=== PATIENT | male | born 1965 | race African-American/Black ===

== ENCOUNTER 2022-05-26 11:43 | Emergency (ER) | payer MEDICAID, SELFPAY ==
--- NOTE | ~2022-05-26 | CT_ITS ---
EXAMINATION: CT HEAD WITHOUT CONTRAST CT CERVICAL SPINE WITHOUT CONTRAST CLINICAL INFORMATION: Seizure. Head strike. COMPARISON: CT head 03/22/2016. TECHNIQUE: Jr. Systems Administrator images were obtained. CT imaging of the head and cervical spine was performed without contrast. Data was reformatted into multiplanar images at the acquisition workstation. This CT examination was performed using dose optimization techniques as appropriate, including one or more of the following: Automated exposure control, iterative reconstruction, and adjustment of technique factors (mA and/or kVp) according to patient size (this includes techniques or standardized protocols for targeted exams where dose is matched to indication/reason for exam). Fleischner Society criteria for the followup of incidental pulmonary nodules was implemented if appropriate. DLP: 1087 mGy-cm. FINDINGS: There is a small chronic cortical infarct involving the left precentral gyrus. There are also a few small foci of chronic encephalomalacia involving the undersurface of the left frontal lobe and the right anterior temporal lobe. Scattered nonspecific foci of hypoattenuation are also visualized within the periventricular white matter. Grossly no evidence of acute territorial infarct. No acute hemorrhage or abnormal extra-axial collection. No intracranial mass effect or hydrocephalus. The calvarium and skull base are intact. Mastoid air cells and middle ear cavities are well aerated. There are chronic changes of an old healed nasal bone fracture and nasal septal fracture that are partially included within the [id number] of this examination. CT/CT head/brain wo IV con IMPRESSION: There is a small chronic cortical infarct within the left precentral gyrus and a few small foci of posttraumatic encephalomalacia involving the left inferior frontal lobe and the right anterior temporal lobe. Scattered chronic small vessel ischemic changes are also visualized within the periventricular white matter. No evidence of acute territorial infarct or hemorrhage.
--- NOTE | ~2022-05-26 | CT_ITS ---
EXAMINATION: CT HEAD WITHOUT CONTRAST CT CERVICAL SPINE WITHOUT CONTRAST CLINICAL INFORMATION: Seizure. Head strike. COMPARISON: CT head 03/22/2016. TECHNIQUE: Broommaker images were obtained. CT imaging of the head and cervical spine was performed without contrast. Data was reformatted into multiplanar images at the acquisition workstation. This CT examination was performed using dose optimization techniques as appropriate, including one or more of the following: Automated exposure control, iterative reconstruction, and adjustment of technique factors (mA and/or kVp) according to patient size (this includes techniques or standardized protocols for targeted exams where dose is matched to indication/reason for exam). Fleischner Society criteria for the followup of incidental pulmonary nodules was implemented if appropriate. DLP: 1087 mGy-cm. FINDINGS: There is a small chronic cortical infarct involving the left precentral gyrus. There are also a few small foci of chronic encephalomalacia involving the undersurface of the left frontal lobe and the right anterior temporal lobe. Scattered nonspecific foci of hypoattenuation are also visualized within the periventricular white matter. Grossly no evidence of acute territorial infarct. No acute hemorrhage or abnormal extra-axial collection. No intracranial mass effect or hydrocephalus. The calvarium and skull base are intact. Mastoid air cells and middle ear cavities are well aerated. There are chronic changes of an old healed nasal bone fracture and nasal septal fracture that are partially included within the [id number] of this examination. CT/CT cervical spine wo IV con IMPRESSION: There is a small chronic cortical infarct within the left precentral gyrus and a few small foci of posttraumatic encephalomalacia involving the left inferior frontal lobe and the right anterior temporal lobe. Scattered chronic small vessel ischemic changes are also visualized within the periventricular white matter. No evidence of acute territorial infarct or hemorrhage.
[2022-05-26 11:56] VITALS: BP 100/65; BP 110/72; PULSE 77; PULSE 80; RESP 20; TEMP 36.6; O2SAT 98; BMI 27.3
[2022-05-26 12:37] VITALS: BP 95/65; PULSE 70; RESP 18; TEMP 36.6; O2SAT 98
--- NOTE | 2022-05-26 13:09 | ED.FALL ---
HPI - Fall General Chief Complaint: Fall Stated Complaint: SEIZURE AND FALL T-1 Time Seen by Provider: 05/26/22 13:03 Source: patient and EMS Mode of arrival: EMS Limitations: altered mental status History of Present Illness HPI Narrative: 56-year-old male with history of seizure disorder, wheelchair bound, alcohol-induced dementia, hypothyroidism, hyperlipidemia, allergic rhinitis, Kaminski who presents to the ER Via EMS from [facility] for evaluation of a frontal headache, nausea and left-sided weakness that was noted today. Patient reportedly fell out of his wheelchair yesterday and had a seizure. He hit his head and sustained a minor laceration that was closed with Steri-Strips yesterday at [facility]. on nursing assessment today patient was found to have some left-sided weakness and he was complaining of a 4/10 frontal headache as well as nausea. Patient is a poor historian. MD complaint: fall Onset (ago): day(s) (1) Fall from: wheelchair Fall witnessed: yes, by living facility staff Place fall occurred: shelter/SNF Prolonged down time: no Symptoms prior to fall: none Location of injury: head Associated symptoms (after fall): headache Related Data Previous Rx's Medication Instructions Recorded cefuroxime axetil 250 mg tablet 250 mg PO BID 7 days #14 tabs 05/26/22 Allergies Allergy/AdvReac Type Severity Reaction Status Date / Time No Known Allergies Allergy Unverified 02/26/20 18:55 [No Known Allergies*] Review of Systems Review of Systems: Constitutional: No Fever, No Chills ENT/Mouth: No sore throat, No Rhinorrhea, No Swallowing Difficulty, +sinus pressure Eyes: No Eye Pain, No Swelling, No Redness Cardiovascular: No Chest Pain, No SOB Respiratory: No Cough, No Sputum, No Wheezing, No dyspnea Gastrointestinal: + Nausea, No Vomiting, No Diarrhea, No abdominal Pain Genitourinary: No Dysuria, No Urinary Frequency, No Hematuria Musculoskeletal: No joint pain, No Myalgias Skin: No Skin Lesions, No rash Neuro: + Weakness, No Numbness, No Dizziness, + Headache Psych: No Anxiety/Panic, No Depression Heme/Lymph: No Bruising, No Lymphadenopathy PMFSH Social History Social History Alcohol intake: former Advance Directives: Yes Advance Directives on File: Yes Advance Directives Date on File: 05/26/22 Physical Exam Vital Signs: Vital Signs: Last Vital Signs Temp 97.7 F 05/26/22 15:16 Pulse 80 05/26/22 15:16 Resp 14 05/26/22 15:16 BP 101/61 05/26/22 15:16 Pulse Ox 98 05/26/22 15:16 O2 Del Method 05/26/22 15:16 BMI result Body Mass Index 27.3 Appearance: Alert. Oriented X2. No acute distress. Head: 2cm linear vertical laceration in the middle of the forehead closed with 2 steri-strips. mild surrounding swelling Eyes: Pupils equal, round and reactive to light. ENT: Pharynx normal. poor dentition Neck: Normal inspection. Neck supple. CVS: Normal heart rate and rhythm. Pulses normal. Respiratory: No respiratory distress. Breath sounds normal. Abdomen: Soft and nontender. +BS x4 Skin: Skin warm and dry. Normal skin color. Normal skin turgor. No rashes. Extremities: No lower extremity edema. Neuro: Oriented X 2, disoriented to time. No motor deficit. No sensory deficit. strength is equal and symmetrical throughout. Course Course Course Narrative: 56 yo male with history of alcohol induced dementia, seizure disorder, wheelchair bound who presents to the ER for evaluation of dizziness, left-sided weakness and nausea along with headache after a fall at his via trach yesterday. Laceration is well approximated with Steri-Strips. On examination he has equal and symmetrical strength throughout. He did require some prompting to perform strength assessment but it is equal and symmetrical. Will get CT scan of his head and neck given head trauma. Will check basic lab your workup and urinalysis. Reevaluation(s) Reevaluation #1: Lab workup unremarkable. CT head with chronic findings, no acute traumatic injury. Urinalysis consistent with infection, start on p.o. antibiotics. He is not septic. Comfortable discharge back to [facility]. Medications Administered Discontinued Medications Generic Name Dose Route Start Last Admin Trade Name Freq PRN Reason Stop Dose Admin Nicotine 14 mg 05/26/22 15:34 05/26/22 15:37 Nicotine 14 Mg Patch.Td24 TRANSDERMA 05/26/22 15:35 14 mg ONCE ONE Administration Medical Decision Making Lab Data Result Diagrams: 05/26/22 13:45 05/26/22 13:45 Labs: Lab Results 1205/26/22 05/26/22 Range/Units 13:45 13:45 13:45 WBC 9.2 (4.8-10.8) X10*3/uL RBC 4.44 L (4.60-5.80) X10*6/uL Hgb 13.8 L (14.0-18.0) g/dl Hct 39.8 L (42.0-52.0) % MCV 89.6 (80.0-98.0) fL MCH 31.1 (27.0-33.0) pg MCHC 34.7 (31.0-36.0) g/dl RDW 13.1 (11.0-16.0) % Plt Count 174 (160-400) X10*3/uL MPV 8.5 L (9.4-12.4) fL Immature Gran % (Auto) 0.1 (0.0-0.4) % Neut % (Auto) 48.8 (45-73) % Lymph % (Auto) 37.5 (20-40) % [place] % (Auto) 9.6 (2-11) % Eos % (Auto) 3.5 (0-4) % Baso % (Auto) 0.5 (0-2) % Lymph # (Auto) 3.5 (1.2-4.9) X10*3/uL [place] # (Auto) 0.9 (0.1-1.2) X10*3/uL Eos # (Auto) 0.3 (0.0-0.4) X10*3/uL Baso # (Auto) 0.1 (0.0-0.2) X10*3/uL Abs Immat Gran (auto) 0.01 (0.00-0.03) X10*3/uL Absolute Neuts (auto) 4.5 (2.0-8.3) x10*3/uL Absolute Nucleated RBC 0.000 (0.0-0.012) X10*3/uL Nucleated RBC % (auto) 0.0 (0.0-0.2) /100WBC Sodium 141 (135-145) mmol/L Potassium 4.1 (3.3-5.1) mmol/L Chloride 107 (96-108) mmol/L Carbon Dioxide 26 (22-29) mmol/L Anion Gap 12 (12-20) BUN 6 L (9-16) mg/dL Creatinine 0.87 (0.5-1.4) mg/dL Estim Creat Clear Calc 95.9 Estimated GFR > 60 Random Glucose 83 (60-115) mg/dL Calcium 9.5 (8.4-10.2) mg/dL Total Bilirubin 0.3 (0.0-1.0) mg/dL AST 17 (5-37) U/L ALT 15 (0-40) U/L Alkaline Phosphatase 80 (39-117) U/L Total Protein 6.6 (6.5-8.0) g/dL Albumin 3.8 (3.5-5.0) g/dL Urine Color Urine Appearance Urine pH (5.0-9.0) Ur Specific [place] (1.005-1.025) Urine Protein (Neg-Trace) mg/dL Urine Glucose (UA) (Negative) mg/dL Urine Ketones (Negative) mg/dL Urine Blood (Negative) Urine Nitrite (Negative) Ur Leukocyte Esterase (Negative) Urine RBC (0-2) /HPF Urine WBC (0-5) /HPF Ur Squamous Epith Cells (0-2) /HPF Urine Bacteria (None Seen) Hyaline Casts (0-2) /LPF COVID-19 (EAMON) (Negative) COVID-19 Clin Com Influenza Type A (CHRISTINA) Negative (Negative) Influenza Type B (CHRISTINA) Negative (Negative) Influenza A & B Note See Note 05/26/22 05/26/22 Range/Units 13:45 15:15 WBC (4.8-10.8) X10*3/uL RBC (4.60-5.80) X10*6/uL Hgb (14.0-18.0) g/dl Hct (42.0-52.0) % MCV (80.0-98.0) fL MCH (27.0-33.0) pg MCHC (31.0-36.0) g/dl RDW (11.0-16.0) % Plt Count (160-400) X10*3/uL MPV (9.4-12.4) fL Immature Gran % (Auto) (0.0-0.4) % Neut % (Auto) (45-73) % Lymph % (Auto) (20-40) % [place] % (Auto) (2-11) % Eos % (Auto) (0-4) % Baso % (Auto) (0-2) % Lymph # (Auto) (1.2-4.9) X10*3/uL [place] # (Auto) (0.1-1.2) X10*3/uL Eos # (Auto) (0.0-0.4) X10*3/uL Baso # (Auto) (0.0-0.2) X10*3/uL Abs Immat Gran (auto) (0.00-0.03) X10*3/uL Absolute Neuts (auto) (2.0-8.3) x10*3/uL Absolute Nucleated RBC (0.0-0.012) X10*3/uL Nucleated RBC % (auto) (0.0-0.2) /100WBC Sodium (135-145) mmol/L Potassium (3.3-5.1) mmol/L Chloride (96-108) mmol/L Carbon Dioxide (22-29) mmol/L Anion Gap (12-20) BUN (9-16) mg/dL Creatinine (0.5-1.4) mg/dL Estim Creat Clear Calc Estimated GFR Random Glucose (60-115) mg/dL Calcium (8.4-10.2) mg/dL Total Bilirubin (0.0-1.0) mg/dL AST (5-37) U/L ALT (0-40) U/L Alkaline Phosphatase (39-117) U/L Total Protein (6.5-8.0) g/dL Albumin (3.5-5.0) g/dL Urine Color Yellow Urine Appearance Clear Urine pH 5.0 (5.0-9.0) Ur Specific [place] 1.025 (1.005-1.025) Urine Protein Negative (Neg-Trace) mg/dL Urine Glucose (UA) Negative (Negative) mg/dL Urine Ketones Trace (Negative) mg/dL Urine Blood Negative (Negative) Urine Nitrite Negative (Negative) Ur Leukocyte Esterase Moderate (2+) H (Negative) Urine RBC 0-2 (0-2) /HPF Urine WBC 21-50 H (0-5) /HPF Ur Squamous Epith Cells 0-2 (0-2) /HPF Urine Bacteria None Seen (None Seen) Hyaline Casts 0-2 (0-2) /LPF COVID-19 (EAMON) Negative (Negative) COVID-19 Clin Com See Note Influenza Type A (CHRISTINA) (Negative) Influenza Type B (CHRISTINA) (Negative) Influenza A & B Note Critical Care Time Critical Care Time Critical Care Time: No Discharge Plan Discharge Clinical Impression: Acute UTI, Laceration of head Patient Disposition: Xfer [facility] Transfer Details: [facility] Instructions: Urinary Tract Infection in Men (ED) Additional Instructions: Your CT scan today did not show any new or acute abnormalities. Your lab work was unremarkable. Your urine test showed evidence of infection. Take the prescribed antibiotic as directed for 1 week. Complete the entire course and do not miss any doses. Prescriptions: New cefuroxime axetil 250 mg tablet 250 mg PO BID 7 Days Qty: 14 0RF
--- NOTE | 2022-05-26 13:24 | PC.NURSE ---
Pt alert to person and place, hx dementia. Coming from [facility] for seizure/fall from wheel chair yesterday afternoon. CT taken
[2022-05-26 13:51] LABS: MANUAL DIFF FLAG NO
[2022-05-26 13:56] LABS: Basophils Absolute Auto 0.1 X10*3/uL (0.0-0.2); Basophils Percent Auto 0.5 % (0-2); Eosinophils Absolute Auto 0.3 X10*3/uL (0.0-0.4); Eosinophils Percent Auto 3.5 % (0-4); Hematocrit 39.8 % (42.0-52.0); Hemoglobin 13.8 g/dl (14.0-18.0); Imm Gran Abs Auto 0.01 X10*3/uL (0.00-0.03); Imm Gran Pct Auto 0.1 % (0.0-0.4); Lymphocytes Absolute Auto 3.5 X10*3/uL (1.2-4.9); Lymphocytes Percent Auto 37.5 % (20-40); Mean Corpuscular HGB Conc 34.7 g/dl (31.0-36.0); Mean Corpuscular Hemoglobin 31.1 pg (27.0-33.0); Mean Corpuscular Volume 89.6 fL (80.0-98.0); Mean Platelet Volume 8.5 fL (9.4-12.4); Monocytes Absolute Auto 0.9 X10*3/uL (0.1-1.2); Monocytes Percent Auto 9.6 % (2-11); Neutrophils Absolute Auto 4.5 x10*3/uL (2.0-8.3); Neutrophils Percent Auto 48.8 % (45-73); Platelet Count 174 X10*3/uL (160-400); Red Blood Count 4.44 X10*6/uL (4.60-5.80); Red Cell Distribution Width 13.1 % (11.0-16.0); White Blood Count 9.2 X10*3/uL (4.8-10.8)
[2022-05-26 14:09] LABS: COVID-19 Test Negative (Negative); IDNOW Serial# 16C4AD1C
[2022-05-26 14:24] LABS: IDNOW Serial# 9DB6401D; Influenza A Negative (Negative); Influenza B2 Negative (Negative)
[2022-05-26 14:36] LABS: Alanine Aminotransferase 15 U/L (0-40); Albumin Level 3.8 g/dL (3.5-5.0); Alkaline Phosphatase 80 U/L (39-117); Anion Gap 12 (12-20); Aspartate Amino Transferase 17 U/L (5-37); Bilirubin Total 0.3 mg/dL (0.0-1.0); Blood Urea Nitrogen 6 mg/dL (9-16); Calcium 9.5 mg/dL (8.4-10.2); Carbon Dioxide 26 mmol/L (22-29); Chloride 107 mmol/L (96-108); Creatinine Clr Calc Pharmacy 95.9; Estimated Glomerular Filt Rate > 60; Glucose Random 83 mg/dL (60-115); Potassium 4.1 mmol/L (3.3-5.1); Sodium 141 mmol/L (135-145); Total Protein 6.6 g/dL (6.5-8.0)
[2022-05-26 15:16] VITALS: BP 101/61; PULSE 80; RESP 14; TEMP 36.5; O2SAT 98
[2022-05-26 15:32] LABS: Appearance Urine Clear; Color Urine Yellow; Glucose Urine UA Negative (Negative); Leukocyte Esterase Urine Moderate (2+) (Negative); Nitrite Urine Negative (Negative); Specific Gravity - Urine 1.025 (1.005-1.025); UMIC TRIGGER UACC YES; Urine Blood Negative (Negative); Urine Ketones Trace mg/dL (Negative); Urine Protein Negative (Neg-Trace)
[2022-05-26 15:35] LABS: Bacteria Urine None Seen (None Seen); Hyaline Casts Urine 0-2 /LPF (0-2); RBC Urine 0-2 /HPF (0-2); Squamous Epithelial Cell Urine 0-2 /HPF (0-2); UACC Culture Trigger YES; WBC Urine 21-50 /HPF (0-5)
[2022-05-26] MEDS: Nicotine 14 MG PATCH.TD24 TRANSDERMA (15:37)
--- NOTE | 2022-05-26 15:59 | MHC.EDTECH ---
pt going home with [facility] today at 6pm Jaclyn navarro booked the ride home
--- NOTE | 2022-05-26 17:38 | PC.NURSE ---
Pt sitting in chair, drink and food provided. Awaiting EMS transport back to [facility]
== END 2022-05-26 18:14 | disposition skilled nursing facility (03) ==
PROVIDERS: Physician Assistant; Emergency Provider Student in an Organized Health Care Education/Training Program; PCP Hospitalist
DX: N39.0 Urinary tract infection, site not specified (principal); Z20.822 Contact with and (suspected) exposure to COVID-19; S01.81XA Laceration without foreign body of other part of head, initial encounter; W05.0XXA Fall from non-moving wheelchair, initial encounter; Y93.9 Activity, unspecified; Y92.129 Unspecified place in nursing home as the place of occurrence of the external cause; Y99.9 Unspecified external cause status
CPT/HCPCS: 36415; 70450; 72125; 80053; 81001; 85025; 87086; 87088; 87186; 87502; 87635; 99284

== ENCOUNTER 2023-02-24 21:04 | Emergency (ER) | payer MEDICAID, SELFPAY ==
--- NOTE | 2023-02-24 | ECG_ITS ---
Test Reason : SEIZURE Blood Pressure : / mmHG Vent. Rate : 072 BPM Atrial Rate : 072 BPM P-R Int : 136 ms QRS Dur : 086 ms QT Int : 408 ms P-R-T Axes : 032 061 071 degrees QTc Int : 446 ms Normal sinus rhythm Normal ECG When compared with ECG of 06-JUN-2019 19:48, No significant change was found Referred By: Generic ED Physician Electronically Signed By:KAREEM AGUILAR
--- NOTE | ~2023-02-24 | CT_ITS ---
EXAMINATION: CT HEAD WITHOUT CONTRAST CT CERVICAL SPINE WITHOUT CONTRAST CLINICAL INFORMATION: Injury. Pain. COMPARISON: 05/26/2022 TECHNIQUE: Contiguous axial imaging was performed from the skull base to vertex without intravenous administration of contrast. This CT examination was performed using dose optimization techniques as appropriate, variously including the following: *Automated exposure control *Adjustment of mA and/or kV according to patient size (this includes techniques or standardized protocols for targeted exams where dose is matched to indication/reason for exam; i.e. extremities or head) *Use of iterative reconstruction technique DLP: 1473 mGy-cm FINDINGS: Motion slightly limits evaluation. There is again seen cerebral volume loss with prominence of the lateral and the third ventricles. The cortical sulci are widened appropriately. The fourth ventricle and basal cisterns are normally outlined. Left frontal encephalomalacia is again seen. There is also mild bilateral periventricular and central white matter diminished attenuation. There is no acute territorial the head, hemorrhage or midline shift. Calvarium: Intact. There appears to be right frontotemporal soft tissue swelling. Maxillofacial sinuses and mastoids: Clear as visualized. Cervical spine: There is straightening of the expected cervical spine curvature. There is mild diffuse cervical disc degenerative change with loss of disc space, endplate change and minimal posterior osteophytes associated with mild diffuse facet osteoarthritic hypertrophic change with mild lateral multilevel spinal canal narrowing, mild to moderate bilateral C5-C6 neuroforaminal narrowing and mild neuroforaminal narrowing at the remaining levels. There is no fracture. Soft tissues are unremarkable. The upper lung bower are clear. CT/CT cervical spine wo IV con IMPRESSION: Motion degraded images slightly limits evaluation. Cerebral volume loss and mild bilateral periventricular and central white matter diminished attenuation which is nonspecific but likely to represent microvascular disease. No acute intracranial abnormality. Straightening of the cervical spine curvature with mild diffuse cervical disc degenerative change. No fracture identified.
[2023-02-24 21:07] VITALS: BP 92/62; PULSE 70; O2SAT 100
[2023-02-24 21:14] VITALS: BP 92/62; PULSE 70; O2SAT 100
[2023-02-24 21:16] VITALS: BP 110/64; PULSE 68; RESP 16; TEMP 36.6; O2SAT 100; BMI 19.6
[2023-02-24 23:13] VITALS: BP 116/79; PULSE 80; RESP 16; TEMP 37; O2SAT 97
--- NOTE | 2023-02-24 23:53 | ED_ITS ---
HPI - Fall General Chief Complaint: Fall Stated Complaint: fall Time Seen by Provider: 02/24/23 22:49 History of Present Illness HPI Narrative: patient is a 57-year-old male with a history of alcohol related dementia history of seizure has a history of being on Dilantin presented today with possibly having a seizure then fell and hitting his head patient unable to provide detailed history was noted by the skilled nursing staff have a large hematoma to the forehead. Patient unable to give details secondary to alcohol induced dementia. Related Data Previous Rx's Medication Instructions Recorded cefuroxime axetil 250 mg tablet 250 mg PO BID 7 days #14 tabs 05/26/22 Allergies Allergy/AdvReac Type Severity Reaction Status Date / Time No Known Allergies Allergy Unverified 02/26/20 18:55 [No Known Allergies*] Review of Systems Review of Systems: Patient uncooperative in answering review of system [facility] Past Medical History Attestation statement: The following information was validated with the patient. Social History Social History Alcohol intake: former Smoked in Last 30 Days: No Use of substances other than those prescribed or required for medical reasons: No Advance Directives: No Advance Directives Information Provided: No Advance Directives Date on File: 05/26/22 Physical Exam Vital Signs: Vital Signs: Last Vital Signs Temp 98.6 F 02/24/23 23:13 Pulse 84 02/25/23 01:06 Resp 16 02/25/23 01:06 BP 116/79 02/24/23 23:13 Pulse Ox 95 02/25/23 01:06 O2 Del Method Room Air 02/25/23 01:06 BMI result Body Mass Index 19.6 Appearance: Alert.No acute distress. Large hematoma to the forehead Eyes: Pupils equal, round and reactive to light. ENT: Pharynx normal. Neck: Normal inspection. Neck supple. No lymph nodes noted. No crepitus CVS: Normal heart rate and rhythm. Pulses normal. Normal S1 and S2 Respiratory: No respiratory distress. Breath sounds normal. No Wheezing. No rales Abdomen: Soft and nontender. No rigidity. No distention. good BS x4 Skin: Skin warm and dry. Normal skin color. Normal skin turgor. Extremities: No lower extremity edema. Neurovascular intact to all extremities. No Lacerations. No Rash Neuro: No motor deficit. No sensory deficit. Moving all extermities. Medications Administered Discontinued Medications Generic Name Dose Route Start Last Admin Trade Name Devon PRN Reason Stop Dose Admin Diphenhydramine HCl 25 mg 02/25/23 00:00 02/25/23 00:52 Diphenhydramine Hcl 50 Mg/Ml Vial IM 02/25/23 00:01 Not Given ONCE ONE Haloperidol Lactate 5 mg 02/24/23 23:58 02/25/23 00:07 Haloperidol Lactate 5 Mg/Ml Vial IM 02/24/23 23:59 5 mg ONCE ONE Administration Lorazepam 2 mg 02/24/23 23:58 02/25/23 00:06 Lorazepam 2 Mg/Ml Vial IM 02/24/23 23:59 2 mg ONCE ONE Administration Ziprasidone 10 mg 02/25/23 00:51 02/25/23 01:00 Ziprasidone Mesylate 20 Mg Vial IM 02/25/23 00:52 10 mg ONCE ONE Administration Medical Decision Making Medical Decision Making [facility] Narrative: patient has positive history of seizure currently in a skilled nursing. History of dementia secondary to ETOH use in the past. Extremely agitated requiring additional medication as we were not able to verbally deescalate the situation. Initially patient received 5 a Haldol 2 Ativan to no avail patient is still agitated swinging at nursing staff. Additional Geodon was given. Currently more sedated awaiting CT scan of the head C-spine. Labs are pending. Differential Diagnosis Differential Diagnoses: The differential diagnosis associated with the presentation includes Seizure, head injury, C-spine injury, electrolyte disturbance Discharge Plan Discharge Clinical Impression: Head injury Patient Disposition: Still a Patient Prescriptions: No Action cefuroxime axetil 250 mg tablet 250 mg PO BID 7 Days Qty: 14 0RF
[2023-02-25] VITALS (10 sets, daily range): BP systolic 95–140; BP diastolic 66–90; PULSE 74–89; RESP 16; TEMP 37; O2SAT 95–99
[2023-02-25] MEDS: LORazepam 2 MG/ML VIAL IM (00:06)
[2023-02-25] MEDS: Haloperidol Lactate 5 MG/ML VIAL IM (00:07)
--- NOTE | 2023-02-25 00:09 | PC.NURSE ---
Pt verbally agressive with docketing specialist, refusing scan, MD at the bedside, pt given IM Haldol and Ativan per MAR, security present at the bedside for assistance medicating, plan to draw labs and scan pt once he is calm.
[2023-02-25] MEDS: Ziprasidone Mesylate 20 MG VIAL 10 MG IM (01:00)
--- NOTE | 2023-02-25 01:04 | PC.NURSE ---
pt continually verbally agressive with staff, attempting to get out of bed, at the bedside, pt medicated with IM Fredrickdon per AUG, plan to wait 20min and then reassess if pt is ready for labs and CT scan
[2023-02-25 02:29] LABS: MANUAL DIFF FLAG NO
[2023-02-25 02:30] LABS: Basophils Absolute Auto 0.1 X10*3/uL (0.0-0.2); Basophils Percent Auto 0.9 % (0-2); Eosinophils Absolute Auto 0.8 X10*3/uL (0.0-0.4); Eosinophils Percent Auto 8.1 % (0-4); Hematocrit 41.6 % (42.0-52.0); Hemoglobin 14.9 g/dl (14.0-18.0); Imm Gran Abs Auto 0.02 X10*3/uL (0.00-0.03); Imm Gran Pct Auto 0.2 % (0.0-0.4); Lymphocytes Absolute Auto 3.2 X10*3/uL (1.2-4.9); Lymphocytes Percent Auto 33.9 % (20-40); Mean Corpuscular HGB Conc 35.8 g/dl (31.0-36.0); Mean Corpuscular Hemoglobin 30.7 pg (27.0-33.0); Mean Corpuscular Volume 85.8 fL (80.0-98.0); Mean Platelet Volume 8.2 fL (9.4-12.4); Monocytes Absolute Auto 0.8 X10*3/uL (0.1-1.2); Monocytes Percent Auto 8.6 % (2-11); Neutrophils Absolute Auto 4.5 x10*3/uL (2.0-8.3); Neutrophils Percent Auto 48.3 % (45-73); Platelet Count 171 X10*3/uL (160-400); Red Blood Count 4.85 X10*6/uL (4.60-5.80); Red Cell Distribution Width 12.6 % (11.0-16.0); White Blood Count 9.4 X10*3/uL (4.8-10.8)
[2023-02-25 02:43] LABS: Ethanol < 10 mg/dL
[2023-02-25 02:44] LABS: Anion Gap 12 (12-20); Blood Urea Nitrogen 7 mg/dL (9-16); Calcium 9.4 mg/dL (8.4-10.2); Carbon Dioxide 22 mmol/L (22-29); Chloride 110 mmol/L (96-108); Creatinine Clr Calc Pharmacy 90.4; Estimated Glomerular Filt Rate > 60; Glucose Random 93 mg/dL (60-115); Potassium 3.9 mmol/L (3.3-5.1); Sodium 140 mmol/L (135-145)
[2023-02-25 02:55] LABS: Phenytoin Dilantin 51.9 ug/mL (10.0-20.0)
--- NOTE | 2023-02-25 03:19 | PC.NURSE ---
pt sleeping, tolerated CT scan and blood work, pending results, VSS
--- NOTE | 2023-02-25 06:38 | MHC.EDTECH ---
call out to melanie to book transport at 0638 for pt back to SNF, estimated eta given was 0754
== END 2023-02-25 07:26 ==
PROVIDERS: Emergency Medicine Emergency Medical Services; Emergency Provider Emergency Medicine Emergency Medical Services; PCP Hospitalist
DX: S09.90XA Unspecified injury of head, initial encounter (principal); W19.XXXA Unspecified fall, initial encounter; Y93.9 Activity, unspecified; Y92.9 Unspecified place or not applicable; Y99.9 Unspecified external cause status; F03.90 Unspecified dementia, unspecified severity, without behavioral disturbance, psychotic disturbance, mood disturbance, and anxiety; M54.2 Cervicalgia; R51.9 Headache, unspecified
CPT/HCPCS: 36415; 70450; 72125; 80048; 80185; 80307; 85025; 93005; 96372; 99284; 99285; J2060; J3486

== ENCOUNTER 2023-09-19 10:08 | Inpatient (IN) | payer MEDICAID, SELFPAY ==
[2023-09-19] VITALS (8 sets, daily range): BP systolic 94–123; BP diastolic 60–76; PULSE 64–74; RESP 14–18; TEMP 36.1–36.9; O2SAT 97–99; BMI 21.3
--- NOTE | ~2023-09-19 | US_ITS ---
EXAMINATION: NONINVASIVE ASSESSMENT OF THE ARTERIES OF THE LEFT LOWER EXTREMITY Jan Mcgee MD CLINICAL INFORMATION: Gangrenous second toe TECHNIQUE: Left lower extremity duplex ultrasound was performed with velocity measurements and waveform analysis in the common femoral arteries, profunda femoris arteries, proximal mid and distal superficial femoral arteries, popliteal arteries and tibial vessels. This study was performed only at rest. COMPARISON: None FINDINGS: Velocities in cm/sec and phasicity as well as the presence of plaque are reported below. LEFT LEG: Mild plaque is seen. Triphasic flow is present in the common femoral artery and profunda femoris artery with biphasic flow noted in the proximal SFA and mid SFA with triphasic flow are again noted in the SFA and popliteal artery. Monophasic flow is present in the posterior tibial and peroneal arteries. Common Femoral: 110 Profunda Femoris: 77 Proximal SFA: 76 Mid SFA: 32 Distal SFA: 68 Popliteal: 48 Posterior tibial artery: 36 Peroneal: 10 US/US arterial duplex LE LT IMPRESSION: There is evidence of mild proximal and mid SFA disease with marked disease with monophasic flow in the tibial runoff vessels.
--- NOTE | ~2023-09-19 | XR_ITS ---
EXAMINATION: XR CHEST XR LEFT FOOT CLINICAL INFORMATION: Shortness of breath and congestion. Left second toe pain. COMPARISON: 03/22/2016 TECHNIQUE: AP and lateral views of the chest were obtained. AP, lateral and oblique views of the left foot were obtained. FINDINGS: Chest: The lungs are well expanded. No focal consolidation. No pleural effusion. Cardiac silhouette is unchanged. Left foot: The bones are osteopenic. Diffuse interphalangeal joint space narrowing. Mild joint space narrowing of the first MTP joint. There is osteolysis involving the distal tuft of the second digit distal phalanx. There is a smooth erosion of the distal aspect of the second digit middle phalanx. Small plantar calcaneal spur. XR/XR chest 2V IMPRESSION: Osteolysis involving the distal tuft of the second digit distal phalanx. Smooth erosion of the distal aspect of the second digit middle phalanx. Osteomyelitis cannot be excluded. No acute cardiopulmonary process.
--- NOTE | ~2023-09-19 | XR_ITS ---
EXAMINATION: XR CHEST XR LEFT FOOT CLINICAL INFORMATION: Shortness of breath and congestion. Left second toe pain. COMPARISON: 03/22/2016 TECHNIQUE: AP and lateral views of the chest were obtained. AP, lateral and oblique views of the left foot were obtained. FINDINGS: Chest: The lungs are well expanded. No focal consolidation. No pleural effusion. Cardiac silhouette is unchanged. Left foot: The bones are osteopenic. Diffuse interphalangeal joint space narrowing. Mild joint space narrowing of the first MTP joint. There is osteolysis involving the distal tuft of the second digit distal phalanx. There is a smooth erosion of the distal aspect of the second digit middle phalanx. Small plantar calcaneal spur. XR/XR foot LT min 3V IMPRESSION: Osteolysis involving the distal tuft of the second digit distal phalanx. Smooth erosion of the distal aspect of the second digit middle phalanx. Osteomyelitis cannot be excluded. No acute cardiopulmonary process.
--- NOTE | 2023-09-19 10:35 | ED.GENADULT ---
HPI - General Adult General Chief complaint: Extremity Injury, Lower Stated complaint: L TOE PAIN/DISCOLORED FROM SNF PER EMS Time Seen by Provider: 09/19/23 10:35 Source: patient and RN notes reviewed Mode of arrival: ambulatory Limitations: no limitations History of Present Illness HPI narrative: This is a 58-year-old male, with a hx of history of seizure disorder, alcohol-induced dementia, hypothyroidism, hyperlipidemia, allergic rhinitis, Kam[place] who presents to the ER via EMS from [facility], who presents with concerns for necrotic 2nd toe. He is unable to provide detailed history secondary to dementia. It is unclear how long this has been like this, he states that he does have pain in this toe. He also has concerns for abdominal discomfort. He is alert and oriented to self only. MD complaint: Second toe necrosis Onset (ago): unknown Related Data Home Medications ?Medication ?Instructions ?Recorded ?Confirmed acetaminophen 325 mg tablet 650 mg PO Q4H PRN Mild Pain (Scale 09/19/23 09/19/23 Score 1-4) aluminum-mag hydroxide-simethicone 30 ml PO QID PRN STOMACH DISCOMFORT 09/19/23 09/19/23 200 mg-200 mg-20 mg/5 mL oral susp aspirin 81 mg tablet,delayed 81 mg PO DAILY 09/19/23 09/19/23 release benzocaine 10 % mucosal gel 1 appl mucous membrane QID PRN 09/19/23 09/19/23 DENTAL PAIN dextran 70-hypromellose eye drops 2 drp ophthalmic (eye) Q6H PRN Dry 09/19/23 09/19/23 in a dropperette (Artificial Tears Eye(S) (PF) drops in a dropperette) diazepam 2 mg tablet 1 mg PO BID 09/19/23 09/19/23 docusate sodium 100 mg capsule 100 mg PO DAILY 09/19/23 09/19/23 (Colace) fluticasone propionate 50 1 spray intranasal BID 09/19/23 09/19/23 mcg/actuation nasal spray,suspension gabapentin 600 mg tablet 600 mg PO TID 09/19/23 09/19/23 haloperidol 2 mg tablet 4 mg PO BID 09/19/23 09/19/23 haloperidol 5 mg tablet 5 mg PO BID 09/19/23 09/19/23 ibuprofen 600 mg tablet 600 mg PO Q8H PRN dental pain 09/19/23 09/19/23 lactulose 10 gram/15 mL (15 mL) 20 g PO BID 09/19/23 09/19/23 oral solution levothyroxine 25 mcg tablet 25 mcg PO DAILY 09/19/23 09/19/23 lorazepam 2 mg/mL injection 1 mg IM Q5M PRN SEIZURES LASTING 09/19/23 09/19/23 solution LONGER THAN 5 MINUTES mineral oil-isopropyl myristat 1 appl topical BEDTIME 09/19/23 09/19/23 lotion (Minerin lotion) multivitamin 1 tab PO DAILY 09/19/23 09/19/23 nicotine 7 mg/24 hr daily 1 patch transdermal Q24H 09/19/23 09/19/23 transdermal patch oxcarbazepine 300 mg tablet 300 mg PO BID 09/19/23 09/19/23 propranolol 10 mg tablet 15 mg PO BID 09/19/23 09/19/23 rosuvastatin 40 mg tablet 40 mg PO DAILY 09/19/23 09/19/23 sennosides 8.6 mg tablet (senna) 8.6 mg PO BEDTIME PRN Constipation 09/19/23 09/19/23 simethicone 80 mg chewable tablet 80 mg PO BID 09/19/23 09/19/23 sodium chloride 0.65 % nasal spray 2 spray intranasal Q2H PRN Nasal 09/19/23 09/19/23 aerosol (Deep Sea Nasal) Congestion thiamine HCl (vitamin B1) 100 mg 100 mg PO DAILY 09/19/23 09/19/23 tablet (Vitamin B-1) Allergies Allergy/AdvReac Type Severity Reaction Status Date / Time No Known Allergies Allergy Verified 09/19/23 10:34 [No Known Allergies*] Review of Systems Review of Systems: Yes all other systems are reviewed and are negative Constitutional: Constitutional: Reports as per [facility] Past Medical History Attestation statement: The following information was validated with the patient. Medical History (Updated 09/19/23 @ 18:25 by Dany Christina MD) Alcoholic dementia Social History Social History Alcohol intake: former Advance Directives Date on File: 05/26/22 Physical Exam ED Vital Signs: Vital Signs - 24 hr 09/19/23 10:32 09/19/23 13:39 09/19/23 17:10 Temperature 97.6 F 97.0 F Pulse Rate 74 64 Respiratory Rate 14 16 16 Blood Pressure 94/60 107/67 Pulse Oximetry 97 98 Oxygen Delivery Method Room Air Room Air 09/19/23 17:23 Temperature 97.5 F Pulse Rate 70 Respiratory Rate 18 Blood Pressure 113/76 Pulse Oximetry 97 Oxygen Delivery Method Room Air BMI result Body Mass Index 21.3 Const General: cooperative, comfortable and no acute distress Orientation/consciousness: oriented to person Limitations: no limitations HENMT Head: Yes normal to inspection, Yes normocephalic and Yes atraumatic Ears: hearing grossly normal bilaterally General nose exam: Normal external nose present Face and sinus: Yes normal facial exam Mouth: Normal oral and palatal mucosa present, oropharynx normal and moist mucous membranes Throat: Yes posterior oropharynx normal Eyes General: appearance normal, both eyes and all related structures Eyelids: Yes eyelids normal Conjunctivae: conjunctivae normal Sclerae: sclerae normal Pupils: Equal, round and reactive pupils present EOM: EOMs intact bilaterally Neck Neck: Yes normal visual inspection, Yes full ROM and Yes no lymphadenopathy Lymphatic: no lymphadenopathy noted Chest Chest palpation & inspection: normal inspection of the chest Resp Effort & Inspection: normal respiratory effort and able to speak in complete sentences Auscultation: clear to auscultation bilaterally, no crackles, no rales, no rhonchi and no wheezes Cardio Rate: regular rate Rhythm: regular rhythm Heart sounds: S1 normal heart sound present and S2 normal heart sound present GI Other: Abdomen is soft, nontender, nondistended Inspection: Yes normal to inspection Skin General skin exam: no rashes or lesions noted Trauma: no lacerations or abrasions Wounds: no wounds Neuro General: oriented to person Cranial nerves: Yes Equal, round and reactive pupils present Extrem Other: Left 2nd toe with dry gangrene noted, DP pulse 2+. Sensation intact. Able to flex and extend all digits without difficulty General: Yes normal to inspection Right upper extremity: normal to inspection Left upper extremity: normal to inspection Right lower extremity: normal to inspection Left lower extremity: normal to inspection Course Reevaluation(s) Reevaluation #1: Patient is COVID positive, we have been waiting approximately 5 hours for blood work to return as patient has been a difficult stick as well as refusing labs. He is agreeable to obtain labs. So far patient has no leukocytosis, stable H&H, chemistry still pending. X-ray revealing osteolysis involving the distal tuft of the 2nd digit distal phalanx, smooth erosion of the distal aspect of the 2nd digit middle phalanx. Osteomyelitis can not be excluded. Time: 16:59 Reevaluation #2: Patient becoming increasingly agitated, he placed his clothes back on himself. Time: 17:06 Reevaluation #3: I discussed case with Dr. Lawrence given dry gangrene, still awaiting chemistry. Dr. Amaya recommends obtaining arterial ultrasound and administering IV vanco and Zosyn and hospital admission. CT abdomen canceled as patient no longer having abdominal pain, abdomen is soft nontender. I discussed case with my attending physician, Dr. Ribeiro. Recommends IV Ativan for agitation. Spoke to hospitalist, transfer of care initiated. Time: 17:51 Medications Administered Discontinued Medications Generic Name Dose Route Start Last Admin Trade Name Freq PRN Reason Stop Dose Admin Aspirin 81 mg 09/20/23 09:00 09/20/23 07:49 Aspirin Enteric Coated 81 Mg Tablet. PO 81 mg DAILY WOODY Administration Atorvastatin Calcium 80 mg 09/20/23 09:00 09/20/23 07:49 Atorvastatin Calcium 80 Mg Tablet PO 80 mg DAILY WOODY Administration Enoxaparin Sodium 40 mg 09/20/23 09:00 09/20/23 07:49 Enoxaparin Sodium 40 Mg/0.4 Ml Syringe SUBCUT 40 mg Q24H WOODY Administration Gabapentin 600 mg 09/19/23 21:00 09/20/23 07:49 Gabapentin 600 Mg Tablet PO 600 mg TID WOODY Administration Haloperidol 5 mg 09/19/23 21:00 09/20/23 07:49 Haloperidol 5 Mg Tablet PO 5 mg BID WOODY Administration Haloperidol 4 mg 09/19/23 21:00 09/20/23 10:39 Haloperidol 1 Mg Tablet PO 4 mg BID WOODY Administration Vancomycin HCl 1,500 mg/ 500 mls @ 333.333 mls/hr 09/19/23 17:49 09/19/23 20:22 Sodium Chloride IV 09/19/23 19:18 Infused ONCE ONE Infusion Piperacillin Sod/Tazobactam 50 mls @ 100 mls/hr 09/19/23 17:49 09/19/23 19:00 Sod 3.375 gm/ Sodium Chloride IV 09/19/23 18:18 Infused ONCE ONE Infusion Piperacillin Sod/Tazobactam 50 mls @ 100 mls/hr 09/19/23 23:45 09/20/23 07:58 Sod 3.375 gm/ Sodium Chloride IV Infused Q6H WOODY Infusion Vancomycin HCl 750 mg/ Sodium 265 mls @ 265 mls/hr 09/20/23 07:00 09/20/23 10:50 Chloride IV Infused Q12H WOODY Infusion Lactulose 20 gm 09/19/23 21:00 09/20/23 07:48 Lactulose 20 Gm/30 Ml Solution PO 20 gm BID WOODY Administration Levothyroxine Sodium 25 mcg 09/20/23 06:00 09/20/23 06:52 Levothyroxine Sodium 25 Mcg Tablet PO 25 mcg DAILY@0600 WOODY Administration Lorazepam 2 mg 09/19/23 17:49 09/19/23 18:08 Lorazepam 2 Mg/Ml Vial IVPUSH 09/19/23 17:50 2 mg ONCE ONE Administration Multivitamins/Vitamin C 1 tab 09/20/23 09:00 09/20/23 07:49 Multivitamin Tablet PO 1 tab DAILY [facility] Administration Propranolol HCl 15 mg 09/19/23 21:00 09/20/23 07:49 Propranolol Hcl 10 Mg Tablet PO 15 mg BID [facility] Administration Protocol Sodium Chloride 3 ml 09/20/23 00:00 09/20/23 07:58 0.9 % Sodium Chloride Flush 3 Ml Syringe IVFLUSH Not Given QSHIFT [facility] Medical Decision Making Medical Decision Making MDM Narrative: This is a 58-year-old male, with a hx of history of seizure disorder, wheelchair bound, alcohol-induced dementia, hypothyroidism, hyperlipidemia, allergic rhinitis, who presents to the ER via EMS from [facility], who presents from [facility] with concerns for necrotic 2nd toe. On arrival, vital signs within normal limits. Left 2nd toe with dry gangrene noted. He has tenderness to palpation along this area and full range of motion. His limb is warm. DP pulse 2 +. Differential diagnoses include cellulitis, dry gangrene, wet gangrene, cellulitis. Plan: Labs, x-ray Differential Diagnosis Differential Diagnoses: The differential diagnosis associated with the presentation includes See above Admission/Observation Consideration of admission/observation: Escalation of care including admission/observation considered Escalation of care including admission/observation considered however given workup today not warranted at this time. Consult Healthcare Provider Management of the patient was discussed with: Cluster Bore Operator Dr. Lawrence Lab Data MDM Lab Attestation statement: I reviewed the patient's lab results. No leukocytosis, stable H&H, chemistry still pending. 09/19/23 16:10 09/19/23 18:18 Labs: Lab Results 09/19/23 09/19/23 09/19/23 Range/Units 11:51 16:10 18:18 WBC 7.1 (4.8-10.8) X10*3/uL RBC 4.95 (4.60-5.80) X10*6/uL Hgb 14.8 (14.0-18.0) g/dl Hct 41.3 L (42.0-52.0) % MCV 83.4 (80.0-98.0) fL MCH 29.9 (27.0-33.0) pg MCHC 35.8 (31.0-36.0) g/dl RDW 14.4 (11.0-16.0) % Plt Count 195 (160-400) X10*3/uL MPV 8.1 L (9.4-12.4) fL Immature Gran % (Auto) 0.1 (0.0-0.4) % Neut % (Auto) 45.2 (45-73) % Lymph % (Auto) 36.5 (20-40) % [place] % (Auto) 10.3 (2-11) % Eos % (Auto) 7.1 H (0-4) % Baso % (Auto) 0.8 (0-2) % Lymph # (Auto) 2.6 (1.2-4.9) X10*3/uL [place] # (Auto) 0.7 (0.1-1.2) X10*3/uL Eos # (Auto) 0.5 H (0.0-0.4) X10*3/uL Baso # (Auto) 0.1 (0.0-0.2) X10*3/uL Abs Immat Gran (auto) 0.01 (0.00-0.03) X10*3/uL Absolute Neuts (auto) 3.2 (2.0-8.3) x10*3/uL Absolute Nucleated RBC 0.000 (0.0-0.012) X10*3/uL Nucleated RBC % (auto) 0.0 (0.0-0.2) /100WBC PT 12.5 (11.1-13.3) SEC INR 1.0 (0.9-1.1) APTT 36.2 (26.0-36.8) SEC Sodium 131 L (135-145) mmol/L Potassium 3.9 (3.3-5.1) mmol/L Chloride 104 (96-108) mmol/L Carbon Dioxide 22 (22-29) mmol/L Anion Gap 9 L (12-20) BUN 5 L (9-16) mg/dL Creatinine 0.95 (0.5-1.4) mg/dL Estim Creat Clear Calc 77.1 Estimated GFR > 60 Random Glucose 97 (60-115) mg/dL Calcium 9.5 (8.4-10.2) mg/dL Magnesium 1.8 (1.6-2.6) mg/dL Total Bilirubin 0.4 (0.0-1.0) mg/dL Direct Bilirubin 0.2 (0.0-0.5) mg/dL AST 26 (5-37) U/L ALT 28 (0-40) U/L Alkaline Phosphatase 76 (39-117) U/L Troponin I High Sens < 2.7 (<3.5-35.0) ng/L Total Protein 7.3 (6.5-8.0) g/dL Albumin 4.0 (3.5-5.0) g/dL Lipase 200 H (8-78) U/L Influenza Type A (PCR) NEGATIVE (Negative) Influenza Type B (PCR) NEGATIVE (Negative) RSV RNA Qual (PCR) NEGATIVE (Negative) SARS-CoV-2 RNA (RT-PCR) POSITIVE A (Negative) Radiology Impression Discussion of test interpretation with radiology: I have reviewed the radiologist's reading. Radiologist Impression: XR/XR foot LT min 3V IMPRESSION: Osteolysis involving the distal tuft of the second digit distal phalanx. Smooth erosion of the distal aspect of the second digit middle phalanx. Osteomyelitis cannot be excluded. No acute cardiopulmonary process. Dictated By: Lilliam Severino MD XR/XR chest 2V IMPRESSION: Osteolysis involving the distal tuft of the second digit distal phalanx. Smooth erosion of the distal aspect of the second digit middle phalanx. Osteomyelitis cannot be excluded. No acute cardiopulmonary process. Dictated By: Lilliam Severino MD Critical Care Time Critical Care Time Critical Care Time: Yes Total Critical Care Time: 35 Attestation: I have personally provided critical care time exclusive of time spent on separately billable procedures. Time includes review of lab data, radiology results, discussion with consultants, and monitoring for potential decompensation. Intervention performed as documented. Discharge Plan Discharge Clinical Impression: Dry gangrene Patient Disposition: Admitted As Inpatient Discharge Date/Time: 09/20/23 12:30
--- NOTE | 2023-09-19 10:46 | ECG_ITS ---
Test Reason : sob Blood Pressure : / mmHG Vent. Rate : 073 BPM Atrial Rate : 073 BPM P-R Int : 174 ms QRS Dur : 084 ms QT Int : 398 ms P-R-T Axes : 049 041 065 degrees QTc Int : 438 ms Normal sinus rhythm Normal ECG When compared with ECG of 24-FEB-2023 21:35, No significant change was found Referred By: Nury Cruz Electronically Signed By:DELISA RODRIGUEZ MD
--- NOTE | 2023-09-19 11:14 | PC.NURSE ---
pt to xray at this time.
--- NOTE | 2023-09-19 12:02 | PC.NURSE ---
this RN attempted to obtain IV access w/ no success. appliance technician Roque attempted to obtain labs as well but did not have success. pt now refusing for labs to be obtained. DARREL Arrington notified/aware.
[2023-09-19 12:50] LABS: Influenza A PCR NEGATIVE (Negative); Influenza B PCR NEGATIVE (Negative); Resp Syncy Virus RNA Qual PCR NEGATIVE (Negative); SARS COV2 PCR INHOUSE POSITIVE (Negative)
--- NOTE | 2023-09-19 13:39 | PC.NURSE ---
vss and up to date. pt resting comfortably in bed in no apparent distress while watching tv. pt waiting for CT results at this time. respirations remain even and unlabored. plan of care ongoing. call garcia placed within reach.
--- NOTE | 2023-09-19 15:37 | MHC.EDTECH ---
This pct attempted to draw labs on patient but the patients veins are hard and give alot of resistance and the patient was very aggitated when trying to collect those labs. RN Aware
--- NOTE | 2023-09-19 16:18 | PC.NURSE ---
delay in obtaining labs d/t pt being difficult stick. 22gIV placed in the left upper arm - patent/intact. pt refusing for 2nd set of cultures to be obtained. DARREL Arrington notified/aware. plan of care ongoing. call garcia placed within reach.
[2023-09-19 16:19] LABS: MANUAL DIFF FLAG NO
[2023-09-19 16:23] LABS: Basophils Absolute Auto 0.1 X10*3/uL (0.0-0.2); Basophils Percent Auto 0.8 % (0-2); Eosinophils Absolute Auto 0.5 X10*3/uL (0.0-0.4); Eosinophils Percent Auto 7.1 % (0-4); Hematocrit 41.3 % (42.0-52.0); Hemoglobin 14.8 g/dl (14.0-18.0); Imm Gran Abs Auto 0.01 X10*3/uL (0.00-0.03); Imm Gran Pct Auto 0.1 % (0.0-0.4); Lymphocytes Absolute Auto 2.6 X10*3/uL (1.2-4.9); Lymphocytes Percent Auto 36.5 % (20-40); Mean Corpuscular HGB Conc 35.8 g/dl (31.0-36.0); Mean Corpuscular Hemoglobin 29.9 pg (27.0-33.0); Mean Corpuscular Volume 83.4 fL (80.0-98.0); Mean Platelet Volume 8.1 fL (9.4-12.4); Monocytes Absolute Auto 0.7 X10*3/uL (0.1-1.2); Monocytes Percent Auto 10.3 % (2-11); Neutrophils Absolute Auto 3.2 x10*3/uL (2.0-8.3); Neutrophils Percent Auto 45.2 % (45-73); Platelet Count 195 X10*3/uL (160-400); Red Blood Count 4.95 X10*6/uL (4.60-5.80); Red Cell Distribution Width 14.4 % (11.0-16.0); White Blood Count 7.1 X10*3/uL (4.8-10.8)
[2023-09-19 16:26] LABS: Prothrombin Time 12.5 SEC (11.1-13.3)
[2023-09-19 16:29] LABS: Partial Thromboplastin Time 36.2 SEC (26.0-36.8)
--- NOTE | 2023-09-19 17:06 | PC.NURSE ---
pt becoming increasingly agitated - states that he wants to go home. pt continuously attempting to get out of bed/keeps redressing himself. pt becoming loud/agitated at this RN and tech. PA aware that pt wants to leave. pt educated on importance of staying. plan of care ongoing. call garcia placed within reach.
[2023-09-19] MEDS: LORazepam 2 MG/ML VIAL IVPUSH (18:08)
--- NOTE | 2023-09-19 18:20 | P.HPHOSP_ITS ---
History of Present Illness Date of Service: 09/19/23 Chief Complaint: left 2nd toe necrosis 58M PMH etoh dementia resident of [facility], hypothryoid, hld, TBI, presented with left 2nd toe necrosis. Patient is aware he is in the hospital but unable to provide history is unaware why he is in the hospital. Patient was sent in from [facility] for ongoing left 2nd toe necrosis. He had been treated there on Bactrim but had no improvement. Patient also mentioned mild cold-like symptoms at 1 point though now denying. He was tested for COVID and found to have PCR positive. No fevers, hypoxia, shortness of breath, chest pain. Foot x-ray with osteolysis involving the distal tuft of the 2nd digit distal phalanx, can not exclude osteomyelitis. Review of Systems 2 Review of Systems: Yes all other systems are reviewed and are negative [facility] Medical History (Updated 09/19/23 @ 18:25 by Dany Christina MD) Alcoholic dementia Social History Alcohol intake: former Smoked in Last 30 Days: No Use of substances other than those prescribed or required for medical reasons: No Advance Directives: No Advance Directives Date on File: 05/26/22 Meds Allergies Allergy/AdvReac Type Severity Reaction Status Date / Time No Known Allergies Allergy Verified 09/19/23 10:34 [No Known Allergies*] Active Medications: Current Medications Vancomycin HCl 1,500 mg/ (Sodium Chloride) 500 mls @ 333.333 mls/hr IV ONCE ONE Stop: 09/19/23 19:18 Home Medications ?Medication ?Instructions ?Recorded ?Confirmed ?Last Taken ?Type acetaminophen 325 mg tablet 650 mg PO Q4H PRN Mild Pain (Scale 09/19/23 09/19/23 Unknown History Score 1-4) aluminum-mag hydroxide-simethicone 30 ml PO QID PRN STOMACH DISCOMFORT 09/19/23 09/19/23 Unknown History 200 mg-200 mg-20 mg/5 mL oral susp aspirin 81 mg tablet,delayed 81 mg PO DAILY 09/19/23 09/19/23 Unknown History release benzocaine 10 % mucosal gel 1 appl mucous membrane QID PRN 09/19/23 09/19/23 Unknown History DENTAL PAIN dextran 70-hypromellose eye drops 2 drp ophthalmic (eye) Q6H PRN Dry 09/19/23 09/19/23 Unknown History in a dropperette (Artificial Tears Eye(S) (PF) drops in a dropperette) diazepam 2 mg tablet 1 mg PO BID 09/19/23 09/19/23 Unknown History docusate sodium 100 mg capsule 100 mg PO DAILY 09/19/23 09/19/23 Unknown History (Colace) fluticasone propionate 50 1 spray intranasal BID 09/19/23 09/19/23 Unknown History mcg/actuation nasal spray,suspension gabapentin 600 mg tablet 600 mg PO TID 09/19/23 09/19/23 Unknown History haloperidol 2 mg tablet 4 mg PO BID 09/19/23 09/19/23 Unknown History haloperidol 5 mg tablet 5 mg PO BID 09/19/23 09/19/23 Unknown History ibuprofen 600 mg tablet 600 mg PO Q8H PRN dental pain 09/19/23 09/19/23 Unknown History lactulose 10 gram/15 mL (15 mL) 20 g PO BID 09/19/23 09/19/23 Unknown History oral solution levothyroxine 25 mcg tablet 25 mcg PO DAILY 09/19/23 09/19/23 Unknown History lorazepam 2 mg/mL injection 1 mg IM Q5M PRN SEIZURES LASTING 09/19/23 09/19/23 Unknown History solution LONGER THAN 5 MINUTES mineral oil-isopropyl myristat 1 appl topical BEDTIME 09/19/23 09/19/23 Unknown History lotion (Minerin lotion) multivitamin 1 tab PO DAILY 09/19/23 09/19/23 Unknown History nicotine 7 mg/24 hr daily 1 patch transdermal Q24H 09/19/23 09/19/23 Unknown History transdermal patch oxcarbazepine 300 mg tablet 300 mg PO BID 09/19/23 09/19/23 Unknown History propranolol 10 mg tablet 15 mg PO BID 09/19/23 09/19/23 Unknown History rosuvastatin 40 mg tablet 40 mg PO DAILY 09/19/23 09/19/23 Unknown History sennosides 8.6 mg tablet (senna) 8.6 mg PO BEDTIME PRN Constipation 09/19/23 09/19/23 Unknown History simethicone 80 mg chewable tablet 80 mg PO BID 09/19/23 09/19/23 Unknown History sodium chloride 0.65 % nasal spray 2 spray intranasal Q2H PRN Nasal 09/19/23 09/19/23 Unknown History aerosol (Deep Sea Nasal) Congestion thiamine HCl (vitamin B1) 100 mg 100 mg PO DAILY 09/19/23 09/19/23 Unknown History tablet (Vitamin B-1) Physical Exam 2 Vital Signs and Narrative: Vital Signs: Last Vital Signs Temp 97.5 F 09/19/23 17:23 Pulse 70 09/19/23 17:23 Resp 18 09/19/23 17:23 BP 113/76 09/19/23 17:23 Pulse Ox 97 09/19/23 17:23 O2 Del Method Room Air 09/19/23 17:23 BMI result Body Mass Index 21.3 General: AO X 2, no acute distress Resp: CTA bilateral, no accessory muscles used CVS: S1,S2,RRR GI: soft, non tender, non distended Neuro: motor grossly intact, alert Results Labs 09/19/23 16:10 09/19/23 16:10 Labs: Laboratory Results - last 24 hr 09/19/23 09/19/23 11:51 16:10 MCV 83.4 MCH 29.9 MCHC 35.8 RDW 14.4 Plt Count 195 MPV 8.1 L Immature Gran % (Auto) 0.1 Neut % (Auto) 45.2 Lymph % (Auto) 36.5 [place] % (Auto) 10.3 Eos % (Auto) 7.1 H Baso % (Auto) 0.8 Lymph # (Auto) 2.6 [place] # (Auto) 0.7 Eos # (Auto) 0.5 H Baso # (Auto) 0.1 Abs Immat Gran (auto) 0.01 Absolute Neuts (auto) 3.2 Absolute Nucleated RBC 0.000 Nucleated RBC % (auto) 0.0 PT 12.5 INR 1.0 APTT 36.2 Influenza Type A (PCR) NEGATIVE Influenza Type B (PCR) NEGATIVE RSV RNA Qual (PCR) NEGATIVE SARS-CoV-2 RNA (RT-PCR) POSITIVE A Imaging Radiologist's Impressions: Impressions Chest X-Ray 09/19/23 11:21 IMPRESSION: Osteolysis involving the distal tuft of the second digit distal phalanx. Smooth erosion of the distal aspect of the second digit middle phalanx. Osteomyelitis cannot be excluded. No acute cardiopulmonary process. Foot X-Ray 09/19/23 11:21 IMPRESSION: Osteolysis involving the distal tuft of the second digit distal phalanx. Smooth erosion of the distal aspect of the second digit middle phalanx. Osteomyelitis cannot be excluded. No acute cardiopulmonary process. Assessment and Plan (1) Dry gangrene: Status: Acute Plan 58M PMH etoh dementia resident of [facility], epilepsy, hypothryoid, hld, TBI, presented with left 2nd toe necrosis left 2nd toe dry gangrene empiric vanc, zosyn vascular eval arterial duplex covid 19 asymptomatic currently TBI, etoh dementia stable, has guardian, haldol hypothryoid synthroid' dvt prophylaxis - lovenox full code patient with dry gangrene needing iv abx, possible surgical intervention, therefore, expected to require atleast 2 midnights inpatient. Quality Stroke Does the patient have a stroke diagnosis?: No VTE Prior VTE?: No VTE Risk Level:: Medical - moderate - high VTE Device Contraindication: Treatment Not Indicated VTE Drug Contraindication: N/A - Med Ordered
[2023-09-19] MEDS: Piperacillin Sodium/Tazobactam 3.375 GM in 0.9 % Sodium Chloride 50 ML IV (18:24)
--- NOTE | 2023-09-19 18:39 | PHA.MEDREC ---
Pharmacy Consult ? Medication Reconciliation Pharmacy has completed the medication reconciliation. List from [facility]. Patient is on 9 mg of haldol a day.
[2023-09-19 18:45] LABS: Alanine Aminotransferase 28 U/L (0-40); Alkaline Phosphatase 76 U/L (39-117); Anion Gap 9 (12-20); Aspartate Amino Transferase 26 U/L (5-37); Bilirubin Direct 0.2 mg/dL (0.0-0.5); Bilirubin Total 0.4 mg/dL (0.0-1.0); Blood Urea Nitrogen 5 mg/dL (9-16); Calcium 9.5 mg/dL (8.4-10.2); Carbon Dioxide 22 mmol/L (22-29); Chloride 104 mmol/L (96-108); Creatinine Clr Calc Pharmacy 77.1; Estimated Glomerular Filt Rate > 60; Glucose Random 97 mg/dL (60-115); Lipase 200 U/L (8-78); Magnesium 1.8 mg/dL (1.6-2.6); Potassium 3.9 mmol/L (3.3-5.1); Sodium 131 mmol/L (135-145); Total Protein 7.3 g/dL (6.5-8.0)
[2023-09-19] MEDS: vancomycin HCL 1,500 MG in 0.9 % Sodium Chloride 500 ML 333.33 MG IV (18:51)
--- NOTE | 2023-09-19 19:26 | PHA.PROG ---
Admission Date/Time: September 19, 2023 18:19 Indication: SKIN Weight in k.6 kg Adjusted body weight in Kg: [place] body weight in Kg: Obesity Dosing Indication % IBW: Serum Creatinine - Last 168 Hours 09/19/23 18:18 Creatinine 0.95 Estimated CrCl and GFR - Last 168 Hours 09/19/23 18:18 Estim Creat Clear Calc 77.1 Estimated GFR > 60 Vancomycin Loading Dose: 1500 MG Current Vancomycin Dosing Regimen: 750 MG Q12H Vancomycin Monitoring using AUC goal of 400 - 600 range with trough as surrogate marker: AUC 468 TROUGH 14.9 Date and Time for next Vancomycin Level to be drawn: 09/20/23 @1700 Pharmacist Comments on Vancomycin Plan: Vancomycin dosing will take advantage of [employer] as a clinical decision support tool that uses Bayesian modeling to calculate individual patient's pharmacokinetic parameters and forecast the patient's drug concentration time course with the target goal AUC 24 range of 400 - 600 mg/L/hr.
--- NOTE | 2023-09-19 19:59 | MHC.EDTECH ---
This tech took over care of patient at 1900,hourly rounds and vitals completed,patient is resting ,belongings list completed and copy placed in chart
--- NOTE | 2023-09-19 20:07 | PC.NURSE ---
Assumed care of pt at 19:15, pt laying in bed, speaking in full complete sentences and cooperative with care. A & O to self only, hx TBI, dementia @ baseline. Plan of care ongoing. VSS.
[2023-09-19 20:36] LABS: Troponin-I High Sensitivity < 2.7 ng/L (<3.5-35.0)
[2023-09-19] MEDS: HaloperidoL 5 MG TABLET PO (21:35)
[2023-09-19] MEDS: Gabapentin 600 MG TABLET PO (21:35)
[2023-09-19] MEDS: HaloperidoL 1 MG TABLET 4 MG PO (21:35)
[2023-09-19] MEDS: Lactulose 20 GM/30 ML SOLUTION PO (21:41)
--- NOTE | 2023-09-19 23:49 | MHC.EDTECH ---
Patient was incot. of a large amount of urine,luz-care given and bed linen changed. [place] Cath. placed on patient to keep clean and dry,patient tolerated well. Hourly rounds and vitals completed.
[2023-09-20] MEDS: Piperacillin Sodium/Tazobactam 3.375 GM in 0.9 % Sodium Chloride 50 ML IV ×2 (01:45→06:48)
[2023-09-20] MEDS: 0.9 % Sodium Chloride Flush 3 ML SYRINGE IVFLUSH (01:45)
[2023-09-20 02:18] VITALS: BP 99/60; PULSE 66; RESP 16; TEMP 36.8; O2SAT 98
--- NOTE | 2023-09-20 02:24 | MHC.EDTECH ---
Hourly rounds and vitals completed,patient is clean and dry. Camera placed in room for safety.
[2023-09-20 04:06] VITALS: BP 105/64; PULSE 61; RESP 16; TEMP 36.9; O2SAT 97
[2023-09-20 06:00] VITALS: BP 101/65; PULSE 62; RESP 18; TEMP 36.6; O2SAT 98
--- NOTE | 2023-09-20 06:20 | MHC.EDTECH ---
Hourly rounds and vitals completed,emptied 500MLS from [place] [facility].patient is resting comfortably call garcia in reach.
[2023-09-20] MEDS: Levothyroxine Sodium 25 MCG TABLET PO (06:52)
[2023-09-20 07:47] VITALS: BP 105/73; PULSE 75; RESP 16; TEMP 36.4; O2SAT 96
[2023-09-20] MEDS: Lactulose 20 GM/30 ML SOLUTION PO (07:48)
[2023-09-20] MEDS: Atorvastatin Calcium 80 MG TABLET PO (07:49)
[2023-09-20] MEDS: HaloperidoL 5 MG TABLET PO (07:49)
[2023-09-20] MEDS: Enoxaparin Sodium 40 MG/0.4 ML SYRINGE SUBCUT (07:49)
[2023-09-20] MEDS: Propranolol HCL 10 MG TABLET 15 MG PO (07:49)
[2023-09-20] MEDS: Multivitamin TABLET 1 TAB PO (07:49)
[2023-09-20] MEDS: Aspirin Enteric Coated 81 MG TABLET.DR PO (07:49)
[2023-09-20] MEDS: Gabapentin 600 MG TABLET PO (07:49)
[2023-09-20] MEDS: vancomycin HCL 750 MG in 0.9 % Sodium Chloride 250 ML 265 MG IV (07:51)
--- NOTE | 2023-09-20 08:18 | PC.NURSE ---
patient is resting in bed quietly, alert and oriented to self, pleasantly confused. patient has [place] cath in place, has clear yellow urine in tubing. patient VSS, medicated per MAR. respirations equal and unlabored, skin dry and intact.
--- NOTE | 2023-09-20 09:11 | PC.NURSE ---
patient had large liquid bowel movement, patient cleaned up, [place] cath intact. patient linens and pads changed, new gown. patient repositioned in bed.
--- NOTE | 2023-09-20 10:12 | PM.DS ---
DS: Providers Provider Date of Service: 09/20/23 Date of admission: 09/19/23 18:19 Primary care physician: Konrad Fajardo DO Consults: 09/19/23 18:18 Consult to Vascular Surgery Routine Consulting Provider: [facility] [place] [facility] Reason for consultation: pvd, dry gangrene DS: Diagnosis Discharge Diagnosis (1) Dry gangrene: Status: Acute DS: Summary Hospital Course Hospital Course: from initial hpi: 58M PMH etoh dementia resident of [facility], hypothryoid, hld, TBI, presented with left 2nd toe necrosis. Patient is aware he is in the hospital but unable to provide history is unaware why he is in the hospital. Patient was sent in from [facility] facility for ongoing left 2nd toe necrosis. He had been treated there on Bactrim but had no improvement. Patient also mentioned mild cold-like symptoms at 1 point though now denying. He was tested for COVID and found to have PCR positive. No fevers, hypoxia, shortness of breath, chest pain. Foot x-ray with osteolysis involving the distal tuft of the 2nd digit distal phalanx, can not exclude osteomyelitis. hospital course: Patient was admitted for left 2nd toe dry gangrene. Was empirically put on vancomycin and Zosyn. Arterial duplex did show some mild peripheral vascular disease (see report). Patient was seen by vascular surgery who felt no acute intervention required at this time. Recommended discontinuing antibiotics and monitoring closely. Can continue to follow outpatient with vascular. Should also continue on aspirin and statin. Patient was incidentally noted test positive for COVID-19 on PCR. He is asymptomatic. For history of TBI and alcohol dementia he was continued on Haldol. For hypothyroidism was continued on Synthroid. Patient will be discharged back to [facility]. Time Attestation Discharge Coordination Time (in mins): 35 Quality: Safe Use of Opioids Does Pt have an Active Cancer Diagnosis on the Problem List?: No Quality: Stroke Does the patient have a stroke diagnosis?: No Physical Exam Vital Signs: Vital Signs: Last Vital Signs Temp 97.6 F 09/20/23 07:47 Pulse 75 09/20/23 07:47 Resp 16 09/20/23 07:47 BP 105/73 09/20/23 07:47 Pulse Ox 96 09/20/23 07:47 O2 Del Method Room Air 09/20/23 07:47 BMI result Body Mass Index 21.3 General: AO X 2, no acute distress Resp: CTA bilateral, no accessory muscles used CVS: S1,S2,RRR GI: soft, non tender, non distended Neuro: motor grossly intact, alert DS: Data Data Completed and Pending Labs on day of discharge: Laboratory Results - last 24 hr 09/19/23 09/19/23 09/19/23 11:51 16:10 18:18 WBC 7.1 RBC 4.95 Hgb 14.8 Hct 41.3 L MCV 83.4 MCH 29.9 MCHC 35.8 RDW 14.4 Plt Count 195 MPV 8.1 L Immature Gran % (Auto) 0.1 Neut % (Auto) 45.2 Lymph % (Auto) 36.5 [place] % (Auto) 10.3 Eos % (Auto) 7.1 H Baso % (Auto) 0.8 Lymph # (Auto) 2.6 [place] # (Auto) 0.7 Eos # (Auto) 0.5 H Baso # (Auto) 0.1 Abs Immat Gran (auto) 0.01 Absolute Neuts (auto) 3.2 Absolute Nucleated RBC 0.000 Nucleated RBC % (auto) 0.0 PT 12.5 INR 1.0 APTT 36.2 Sodium 131 L Potassium 3.9 Chloride 104 Carbon Dioxide 22 Anion Gap 9 L BUN 5 L Creatinine 0.95 Estim Creat Clear Calc 77.1 Estimated GFR > 60 Random Glucose 97 Calcium 9.5 Magnesium 1.8 Total Bilirubin 0.4 Direct Bilirubin 0.2 AST 26 ALT 28 Alkaline Phosphatase 76 Troponin I High Sens < 2.7 Total Protein 7.3 Albumin 4.0 Lipase 200 H Influenza Type A (PCR) NEGATIVE Influenza Type B (PCR) NEGATIVE RSV RNA Qual (PCR) NEGATIVE SARS-CoV-2 RNA (RT-PCR) POSITIVE A Discharge Plan Discharge Anticipated Discharge Date/Time: 09/20/23 09:52 Patient Disposition: Xfer SNF Discharge Diagnosis: dry gangrene, covid Referrals: Dov Lawrence MD [Physician] - 1 Week Konrad Fajardo DO [Primary Care Provider] - 1 Week Discharge Medications: Continued multivitamin Tablet 1 tab PO DAILY acetaminophen 325 mg Tablet 650 mg PO Q4H PRN (Reason: Mild Pain (Scale Score 1-4)) gabapentin 600 mg Tablet 600 mg PO TID haloperidol 5 mg Tablet 5 mg PO BID aspirin 81 mg Tablet,Delayed Release (Dr/Ec) 81 mg PO DAILY levothyroxine 25 mcg Tablet 25 mcg PO DAILY propranolol 10 mg Tablet 15 mg PO BID docusate sodium [Colace] 100 mg Capsule 100 mg PO DAILY ibuprofen 600 mg Tablet 600 mg PO Q8H PRN (Reason: dental pain) haloperidol 2 mg Tablet 4 mg PO BID Rx Instructions: 9 mg daily in total fluticasone propionate 50 mcg/actuation [place],Suspension 1 spray INTRANASAL BID Rx Instructions: administer into each nostril nicotine 7 mg/24 hr Patch 24 Hour 1 patch TRANSDERMAL Q24H [place] Lotion 1 appl TOPICAL BEDTIME Artificial Tears (PF) Dropperette 2 drp ophthalmic (eye) Q6H PRN (Reason: Dry Eye(S)) [place] Nasal 0.65 % Aerosol,[place] 2 spray INTRANASAL Q2H PRN (Reason: Nasal Congestion) rosuvastatin 40 mg Tablet 40 mg PO DAILY lactulose 10 gram/15 mL (15 mL) Solution 20 g PO BID lorazepam 2 mg/mL Solution 1 mg IM Q5M PRN (Reason: SEIZURES LASTING LONGER THAN 5 MINUTES) Rx Instructions: until symptoms controlled benzocaine 10 % Gel 1 appl MUCOUS MEMBRANE QID PRN (Reason: DENTAL PAIN) sennosides [senna] 8.6 mg Tablet 8.6 mg PO BEDTIME PRN (Reason: Constipation) thiamine HCl (vitamin B1) [Vitamin B-1] 100 mg Tablet 100 mg PO DAILY oxcarbazepine 300 mg Tablet 300 mg PO BID diazepam 2 mg Tablet 1 mg PO BID alum-mag hydroxide-simeth 200-200-20 mg/5 mL Suspension 30 ml PO QID PRN (Reason: STOMACH DISCOMFORT) Rx Instructions: administer between meals and at bedtime simethicone 80 mg Tablet,Chewable 80 mg PO BID Discharge Orders: Discharge Order (Routine); Ordered 09/20/23 Ordered By: Dany Christina Diet: Advance to usual diet Activity on Discharge: As tolerated Stand Alone Forms: Patient Portal Discharge page Print Language: Telugu Care Plan Goals: manage dry gangrene Health Concerns: dr ocampo Plan of Treatment: follow up with vascular, no abx for now, continue asa, statin Assessment: see above
[2023-09-20 10:24] VITALS: BP 96/62; PULSE 62; RESP 12; TEMP 36.7; O2SAT 99
[2023-09-20] MEDS: HaloperidoL 1 MG TABLET 4 MG PO (10:39)
--- NOTE | 2023-09-20 11:45 | PC.NURSE ---
patient appears to be asleep. respirations equal and unlabored. patient is waiting ambulance ride back [facility] for d/c
--- NOTE | 2023-09-20 12:53 | PC.NURSE ---
patient [facility], patient gilberto cath emptied 500 ml urine
--- NOTE | 2023-09-20 12:57 | PC.NURSE ---
called [facility] to alert them that patient is d/c and coming back.
== END 2023-09-20 13:00 | disposition skilled nursing facility (03) | DRG 197 ==
LOC: HO.ED 17:55 → HO.EDOVER 18:26
PROVIDERS: Physician Assistant Medical; Admitting Provider Internal Medicine; Emergency Provider Student in an Organized Health Care Education/Training Program; PCP Hospitalist; Visit Provider Internal Medicine
DX: I70.262 Atherosclerosis of native arteries of extremities with gangrene, left leg (principal); U07.1 COVID-19; F10.97 Alcohol use, unspecified with alcohol-induced persisting dementia; E03.9 Hypothyroidism, unspecified; E78.5 Hyperlipidemia, unspecified; G40.909 Epilepsy, unspecified, not intractable, without status epilepticus; Z99.3 Dependence on wheelchair; Z87.820 Personal history of traumatic brain injury; Z79.899 Other long term (current) drug therapy
CPT/HCPCS: 0241U; 71046; 73630; 80048; 80076; 83690; 83735; 84484; 85025; 85610; 85730; 87040; 93005; 93926; 99285; J1650; J2060; J2543; J3370; J3371

== ENCOUNTER → 2023-09-19 10:46 | Outpatient (BNV) | payer MEDICAID, SELFPAY | PROVIDERS: Emergency Provider Student in an Organized Health Care Education/Training Program; PCP Hospitalist; Visit Provider Internal Medicine Cardiovascular Disease | DX: R06.02 Shortness of breath (principal) | CPT/HCPCS: 93010 ==

== ENCOUNTER → 2023-09-19 18:19 | Outpatient (BNV) | payer MEDICAID, SELFPAY | PROVIDERS: Admitting Provider Internal Medicine; Emergency Provider Student in an Organized Health Care Education/Training Program; PCP Hospitalist; Visit Provider Internal Medicine | DX: I96 Gangrene, not elsewhere classified (principal) | CPT/HCPCS: 99223; 99239 ==

== ENCOUNTER 2023-10-25 09:15 | Outpatient (AMB) | payer MEDICAID, SELFPAY ==
--- NOTE | 2023-10-25 09:20 | MHC.OFFVIS ---
Vital Signs 10/25/23 09:21 Height 5 ft 5 in Intake Visit Reasons: ED referral for 2nd toe gangrene Intake Note: left foot 2nd toe gangrene referral from the ED s/p Arterial US 09/19/23. Pt is currently residing [facility], in a wheelchair today, states that he can walk depending on the day, no bandage or drainage from toe. Pt states no pain, he cant feel his toe. Accompanied by: staff [facility] Allergies No Known Allergies [No Known Allergies*] Allergy (Verified 10/25/23 09:23) HPI HPI ED referral for 2nd toe gangrene: Details: Very pleasant 58-year-old gentleman presents for evaluation regarding nonhealing left 2nd toe. He reports no interval changes. He has undergone noninvasive arterial testing. He did have a hospital admission on 09/19/2023. Now presents to us for follow-up. [facility] Medical History Alcoholic dementia Social History Alcohol intake: former Advance Directives Date on File: 05/26/22 Review of Systems Const All systems reviewed & are unremarkable except as noted in HPI and below Reports no additional complaints ENT Reports Normal hearing present Card Denies chest pain, Denies chest pain at rest, Denies chest pain with activity and Denies pedal edema Resp Denies cough GI Denies abdominal pain Musc Denies abnormal gait, Denies muscle cramps and Denies radiating pain into limb Skin/Breast Denies skin ulcer and Denies wounds Neuro Reports Normal hearing present and Denies abnormal gait Psych Reports no additional complaints Physical Exam Const General: cooperative, healthy appearing and comfortable Orientation/consciousness: oriented to person, oriented to place and oriented to time HEENT Head: Yes normal to inspection Neck Neck: Yes normal visual inspection Carotids: no bruits Chest Chest palpation & inspection: normal inspection of the chest Resp Effort & Inspection: normal respiratory effort and able to speak in complete sentences Auscultation: clear to auscultation bilaterally, no crackles, no rales, no rhonchi and no wheezes Cardio Other: Bilateral DP signals Rate: regular rate Rhythm: regular rhythm Heart sounds: S1 normal heart sound present and S2 normal heart sound present Bruits: no carotid bruits Peripheral pulses: Peripheral pulses 2+ throughout GI Inspection: Yes normal to inspection Skin Wounds: no wounds Hair: normal Neuro General: oriented to person, oriented to place and oriented to time Cranial nerves: Yes CN's II-XII intact bilaterally and Yes Normal hearing present Cognition (Neuro): normal cognition Motor exam (neuro): 5/5 motor strength present throughout Extrem Other: venous exam: No significant superficial varicosities or spider telangiectasias, minimal edema General: No clubbing, No cyanosis and No edema Psych Appearance: grossly normal Mental Status: mental status grossly normal Speech and movement: Normal speech and movement present Results Reviewed Results Reviewed: Left leg ultrasound demonstrates mid SFA disease dated 09/19/2023 Assessment & Plan Assessment & Plan (1) PAD (peripheral artery disease): Code(s): I73.9 - Peripheral vascular disease, unspecified Category: Medical Plan: Patient notes leg pain when walking distances. I have discussed the pathophysiology of peripheral vascular disease with the patient. I have also discussed risk factor modification. I have reviewed the patient's arterial testing which reveals left SFA disease. the patient would benefit from a left leg endovascular peripheral angiogram with possible angioplasty, stent, and/or atherectomy. This has been discussed in detail with the patient along with risks, benefits, and complications. This includes but is not limited to bleeding, infection, heart attack, need for emergent surgical repair, limb ischemia, blood vessel damage, bleeding, puncture, kidney injury, bruising, allergic reaction, and skin reaction. The patient demonstrates a clear understanding. We will schedule for the next appropriate time. Thank you for allowing us to assist in this patient's care. Coding Level of Care Code Est Pt Level 4 (51089) Diagnoses PAD (peripheral artery disease) I73.9
== END 2023-10-25 09:57 | disposition home or self-care (01) ==
PROVIDERS: PCP Hospitalist; Visit Provider Surgery Vascular Surgery
DX: I73.9 Peripheral vascular disease, unspecified (principal)
CPT/HCPCS: 99214

== ENCOUNTER → 2023-10-25 09:15 | Outpatient (BNVA) | payer MEDICAID, SELFPAY | PROVIDERS: PCP Hospitalist; Visit Provider Surgery Vascular Surgery | DX: I73.9 Peripheral vascular disease, unspecified (principal) | CPT/HCPCS: 99212 ==

== ENCOUNTER 2023-11-07 07:24 | Day surgery (SDC) | payer MEDICAID, SELFPAY ==
[2023-11-07] VITALS (10 sets, daily range): BP systolic 95–120; BP diastolic 52–77; PULSE 65–73; RESP 16–18; TEMP 36.1–36.6; O2SAT 96–99; BMI 24.0
[2023-11-07] MEDS: 0.9 % Sodium Chloride 1,000 ML 100 ML IVCONT (08:26)
--- NOTE | 2023-11-07 10:01 | PC.NURSE ---
Lab attempted draw pt x2 without success. Dr Lawrence aware and verbalized ok to proceed as pt had labs drawn in September 2023.
--- NOTE | 2023-11-07 11:55 | W.PM.OPN ---
Operative Note Operative Note Date of Service: 11/07/23 Narrative: Angiogram report from [facility] Preoperative diagnosis: Atherosclerosis of left lower extremity with nonhealing ulcer Postoperative diagnosis: Same Procedure: 1. Ultrasound-guided right common femoral access 2. Aortogram with left lower extremity runoff 3. Left popliteal plasty Surgeon:Dov Lawrence M.D., FACS, RPVI Senior Clinical Consultant:None Anesthesia: Local with moderate conscious sedation. Total intraservice moderate sedation time was 64 minutes. I monitored the patient's level of consciousness and physiologic status continuously throughout the procedure. Specimens:none Drains:none Estimated blood loss: Less than 10 ml Implant: Medtronic Impact DCB 5 x 40 Indications: 58-year-old gentleman with alcoholic dementia presents for endovascular intervention regarding nonhealing left ulcer The patient has signed the informed consent after reviewing risks, complications, benefits, and alternatives previously discussed with the patient. The patient was given the opportunity to ask any additional questions or voice any concerns. All questions were answered to the patient's satisfaction. Procedure in detail: Patient was brought to the angiography suite prior to which a time-out was called for patient identification and site verification. Bilateral groins were prepped and draped in the standard surgical fashion. Under ultrasound guidance right common femoral was punctured with micro puncture needle and wire. Subsequently a precision 5 Faro[place] sheath was then placed. Bentson wire was advanced to the level of the aorta. 5 Faroese Flush catheter was brought up and parked at the level of the renal arteries. Aortogram was then undertaken. Catheter was brought down to the level of the iliac bifurcation. Iliacs were subsequently imaged. Catheter was then brought in up and over to the left side SFA. Runoff study was then undertaken. We were able to then advanced an 035 glidewire advantage into the left SFA. It did take a few attempts as there was significant tortuosity. Once in appropriate location. We used a Navicross to traverse and get down into the popliteal. We took multiple images and was triple orthogonal images. There was a total occlusion at the P2 segment. It looks like there was multiple collaterals that fed. We tried multiple attempts to traverse this. We were unsuccessful. We even size down to an 014 wire. Once again we were unsuccessful. We would previously administered 5000 units of systemic heparin. We turned our attention to the above knee popliteal. This was stenotic. We 1st plasty this with a regular 5 x 40 balloon. We subsequently plasty this with a 5 x 40 drug coated balloon. This was brought into position in under 3 minutes and insufflated for a total of 3 minutes in duration. Patient tolerated this well. We then placed CELT closure device. He tolerated the procedure well. Returned to recovery with stable vitals. Interpretation of films: 1. Ultrasound demonstrates appropriate femoral puncture. Image of which was saved. 2. Aortogram demonstrates appropriate caliber aorta. Minimal disease. Appropriate take-off of the renals. 3. Iliac images demonstrate no significant disease 4. Left Leg Common femoral artery: No significant disease Profundus Femoris: No significant disease Superficial femoral artery: No significant disease Popliteal artery (p1,p2,p3): Disease P1. P2 segment total occlusion at the behind knee popliteal. Multiple collaterals Anterior tibial artery: Reconstitutes via collateral only able to see upper 3rd Peroneal artery: Reconstitutes via collateral occludes in the mid 3rd Posterior tibial artery: Reconstitutes via collaterals was only able to see upper 3rd Dorsalis pedis/plantar arch: Unable to visualize. Conclusion: 1. Successful left popliteal plasty 2. Anticoagulation status: Will require aspirin and Plavix for 6 months This note is constructed using voice recognition software. While every effort has been made to ensure accuracy, sock lining examiner errors may have been included. Thank you for allowing me to participate in the care of your patient. Yours sincerely, Dov Lawrence MD, FACS, R.P.V.I.
[2023-11-07] MEDS: Clopidogrel Bisulfate 300 MG TABLET PO (13:07)
== END 2023-11-07 14:00 | disposition home or self-care (01) ==
PROVIDERS: PCP Hospitalist; Visit Provider Surgery Vascular Surgery
DX: I70.202 Unspecified atherosclerosis of native arteries of extremities, left leg (principal); I73.9 Peripheral vascular disease, unspecified; F10.27 Alcohol dependence with alcohol-induced persisting dementia
CPT/HCPCS: 37224; 75630; 76937; 99152; 99153; A4364; C1725; C1760; C1769; C1887; C1894; C2623; J1644; J2250; J2310; J3010; Q9967

== ENCOUNTER → 2023-11-07 07:24 | Outpatient (BNV) | payer MEDICAID, SELFPAY | PROVIDERS: PCP Hospitalist; Visit Provider Surgery Vascular Surgery | DX: I70.232 Atherosclerosis of native arteries of right leg with ulceration of calf (principal) | CPT/HCPCS: 37224; 75625; 75710; 76937; 99152 ==

== ENCOUNTER 2024-04-29 15:11 | Outpatient (AMB) | payer MEDICAID, SELFPAY ==
--- NOTE | 2024-04-29 15:30 | MHC.OFFVIS ---
Intake Visit Reasons: Non healing ulcers s/p angio 11/07/23 Intake Note: follow up Left Angio 11/07/23 w/ non-healing ulcers, no visible ulcers today, pt unsure. Left LE is cold Accompanied by: [facility] [employer] EQUIPMENT OPERATOR Allergies No Known Allergies [No Known Allergies*] Allergy (Verified 04/29/24 15:37) HPI HPI Non healing ulcers s/p angio 11/07/23: Details: Very pleasant 58-year-old gentleman presents for follow-up status post endovascular intervention. He has a history of alcohol dementia and had an endovascular intervention of the left lower extremity for nonhealing left 2nd toe. The toe has gone on to heal. He is doing extremely well otherwise. He has had no other interval issues. Reports no difficulty walking but according to the health caregiver that was with him basically transfers but does not do much more than that. Now presents for follow-up. [facility] Medical History Alcoholic dementia Social History Alcohol intake: former Advance Directives Date on File: 05/26/22 Review of Systems Const All systems reviewed & are unremarkable except as noted in HPI and below Reports no additional complaints ENT Reports Normal hearing present Card Denies chest pain, Denies chest pain at rest, Denies chest pain with activity and Denies pedal edema Resp Denies cough GI Denies abdominal pain Musc Denies abnormal gait, Denies muscle cramps and Denies radiating pain into limb Skin/Breast Denies skin ulcer and Denies wounds Neuro Reports Normal hearing present and Denies abnormal gait Psych Reports no additional complaints Physical Exam Const General: cooperative, healthy appearing and comfortable Orientation/consciousness: oriented to person, oriented to place and oriented to time HEENT Head: Yes normal to inspection Neck Neck: Yes normal visual inspection Carotids: no bruits Chest Chest palpation & inspection: normal inspection of the chest Resp Effort & Inspection: normal respiratory effort and able to speak in complete sentences Auscultation: clear to auscultation bilaterally, no crackles, no rales, no rhonchi and no wheezes Cardio Rate: regular rate Rhythm: regular rhythm Heart sounds: S1 normal heart sound present and S2 normal heart sound present Bruits: no carotid bruits Peripheral pulses: Peripheral pulses 2+ throughout GI Inspection: Yes normal to inspection Skin Wounds: no wounds Hair: normal Neuro General: oriented to person, oriented to place and oriented to time Cranial nerves: Yes CN's II-XII intact bilaterally and Yes Normal hearing present Cognition (Neuro): normal cognition Motor exam (neuro): 5/5 motor strength present throughout Extrem Other: venous exam: No significant superficial varicosities or spider telangiectasias, minimal edema General: No clubbing, No cyanosis and No edema Psych Appearance: grossly normal Mental Status: mental status grossly normal Speech and movement: Normal speech and movement present Assessment & Plan Assessment & Plan (1) PAD (peripheral artery disease): Comment: 11/07/2023 - left popliteal plasty Code(s): I73.9 - Peripheral vascular disease, unspecified Category: Medical Plan: In short patient has done well status post endovascular intervention. He has gone on to heal the wound. Unfortunately he was lost to follow-up and needs arterial surveillance. We will try to schedule that as soon as possible. He will require total of 6 months of aspirin and Plavix. Thank you for allowing us to assist in his care. If there are any questions or concerns please do not hesitate to contact us Please note a longitudinal relationship has been created with the patient and we have been following and surveillance this chronic condition. Orders: Orders US arterial duplex LE BI 1 Week I73.9 - Peripheral vascular disease, unspecified Coding Level of Care Code Est Pt Level 4 (70353) Diagnoses PAD (peripheral artery disease) I73.9
== END 2024-04-29 15:47 | disposition home or self-care (01) ==
PROVIDERS: Visit Provider Surgery Vascular Surgery
DX: I73.9 Peripheral vascular disease, unspecified (principal)
CPT/HCPCS: 99214

== ENCOUNTER → 2024-04-29 15:11 | Outpatient (BNVA) | payer MEDICAID, SELFPAY | PROVIDERS: Visit Provider Surgery Vascular Surgery | DX: I73.9 Peripheral vascular disease, unspecified (principal) | CPT/HCPCS: 99212 ==

== ENCOUNTER 2024-05-14 13:44 | Outpatient (REF) | payer MEDICAID, SELFPAY ==
--- NOTE | ~2024-05-14 | US_ITS ---
EXAMINATION: Noninvasive assessment of the bilateral lower extremities with ARTERIAL DUPLEX, ANKLE BRACHIAL INDICES (ABIs), and PULSE VOLUME RECORDINGS (PVRs). CLINICAL INFORMATION: Peripheral vascular disease TECHNIQUE: Duplex Doppler techniques with waveform analysis and measurement of velocities in the bilateral common femoral, profunda femoris, superficial femoral, popliteal and tibial arteries were performed. Additionally, ankle pulse volume recordings, ankle pressure measurements and ankle brachial indices were obtained of the lower extremity arterial system bilaterally. The study was performed only at rest. COMPARISON: None FINDINGS: DIRECT DUPLEX DOPPLER FINDINGS: RIGHT LEG: Common femoral artery: 87 cm/s, phasicity: Triphasic Profunda femoris artery: 127 cm/s, phasicity: Triphasic Superficial femoral artery (proximal): 77 cm/s, phasicity: Triphasic Superficial femoral artery (mid): 40 cm/s, phasicity: Triphasic, with a collateral visualized Superficial femoral artery (distal): 47 cm/s, phasicity: Triphasic Popliteal artery: 84 cm/s, phasicity: Biphasic Posterior tibial artery: Occluded proximally and distally, the mid segment has velocity of 14 cm/s with a monophasic waveform Peroneal artery: Occluded Anterior tibial artery: 11 cm/s, phasicity: Monophasic with apparent reversal of flow Dorsalis pedis artery: 6 cm/s, phasicity:Monophasic LEFT LEG: Common femoral artery: 141 cm/s, phasicity: Triphasic Profunda femoris artery: 59 cm/s, phasicity: Triphasic Superficial femoral artery (proximal): 62 cm/s, phasicity: Triphasic Superficial femoral artery (mid): 53 cm/s, phasicity: Triphasic Superficial femoral artery (distal): 71 cm/s, phasicity: Triphasic Popliteal artery: 50 cm/s, phasicity: Triphasic Posterior tibial artery: 41 cm/s, phasicity: Monophasic Peroneal artery: Occluded proximally, the mid segment has velocity of 15 cm/s and a monophasic waveform Anterior tibial artery: 7 cm/s, phasicity: Monophasic with apparent reversal of flow Dorsalis pedis artery: 13 cm/s, phasicity: Monophasic; with apparent reversal of flow Incidental note is made of occlusive thrombus and noncompressibility of the left popliteal vein. BRACHIAL PRESSURES: Right: 100 Left: 96 ANKLE PRESSURES: Right: PT not obtained, DP 80 Left: PT 90, DP 81 ANKLE-BRACHIAL INDEX: Right: 0.8 Left: 0.9 ANKLE PVR WAVEFORMS: Right: Abnormal Left: Abnormal US/US arterial duplex BI w/ NATO IMPRESSION: Right leg: Mild stenosis in the right profunda femoris artery by velocity criteria. The peroneal and posterior tibial arteries are occluded, with reconstitution of a short segment in the mid posterior tibial artery with monophasic waveforms. The anterior tibial artery has significantly decreased velocity and a monophasic waveform with reversal of flow. Abnormal NATO and PVR waveforms. Left leg: Mild stenosis in the left common femoral artery by velocity criteria. Interval resolution in the mild stenosis in the left superficial femoral artery. The proximal peroneal artery is occluded with reconstitution in the mid segment. Decreased velocity and monophasic waveforms of the posterior tibial and anterior tibial arteries. The anterior tibial artery demonstrates reversal of flow. Incidental note is made of occlusive thrombus and noncompressibility of the left popliteal vein. Recommend duplex ultrasound of the lower extremity veins to assess for extent. NATO Reference: - >1.4 = calcified vessels - 0.9 - 1.4 = normal - no significant arterial disease - 0.7 - 0.89 = mild peripheral arterial disease - 0.51 - 0.69 = moderate peripheral arterial disease - d 0.50 = severe peripheral arterial disease - < .30 = critical arterial disease Electronically signed by: Jeanette De Oliveira MD 05/16/2024 12:45 PM [facility]
== END 2024-05-14 13:45 | disposition home or self-care (01) ==
LOC: HO.US 13:44
PROVIDERS: PCP Hospitalist; Visit Provider Surgery Vascular Surgery
DX: I73.9 Peripheral vascular disease, unspecified (principal)
CPT/HCPCS: 93922; 93925

== ENCOUNTER 2024-05-14 15:02 | Emergency (ER) | payer MEDICAID, SELFPAY ==
[2024-05-14 15:20] VITALS: BP 96/61; PULSE 69; RESP 18; TEMP 37.3; O2SAT 99; BMI 30.9
--- NOTE | 2024-05-14 15:21 | ED_ITS ---
HPI - Extremity Injury (Lower) General Chief Complaint: General Medical Stated Complaint: bloodclot in leg Time Seen by Provider: 05/14/24 18:18 Source: patient Mode of arrival: ambulatory Limitations: no limitations History of Present Illness ED Provider: DARREL Peoples HPI Narrative: This is a 58 year old male History of peripheral artery disease, dry gangrene, alcoholic dementia presenting w/ pain behind left knee X unclear amount of time. He had an outpatient ultrasound of the left knee showing DVT he was brought down to the emergency department for labs. Preliminary report in chart however final report not yet done. Patient comes [facility]. At 1 point he was reporting a headache however he denies this to myself. He states He is feeling well. He denies chest pain, shortness of breath, headache, vision changes, dizziness, weakness, nausea, vomiting, abdominal pain. He is accompanied by a worker from [facility]. He is pleasant and calm. Related Data Home Medications ?Medication ?Instructions ?Recorded ?Confirmed acetaminophen 325 mg tablet 650 mg PO Q4H PRN Mild Pain (Scale 09/19/23 09/19/23 Score 1-4) aluminum-mag hydroxide-simethicone 30 ml PO QID PRN STOMACH DISCOMFORT 09/19/23 09/19/23 200 mg-200 mg-20 mg/5 mL oral susp aspirin 81 mg tablet,delayed 81 mg PO DAILY 09/19/23 11/07/23 release benzocaine 10 % mucosal gel 1 appl mucous membrane QID PRN 09/19/23 09/19/23 DENTAL PAIN dextran 70-hypromellose eye drops 2 drp ophthalmic (eye) Q6H PRN Dry 09/19/23 09/19/23 in a dropperette (Artificial Tears Eye(S) (PF) drops in a dropperette) diazepam 2 mg tablet 1 mg PO BID 09/19/23 11/07/23 docusate sodium 100 mg capsule 100 mg PO DAILY 09/19/23 11/07/23 (Colace) fluticasone propionate 50 1 spray intranasal BID 09/19/23 09/19/23 mcg/actuation nasal spray,suspension gabapentin 600 mg tablet 600 mg PO TID 09/19/23 11/07/23 haloperidol 2 mg tablet 4 mg PO BID 09/19/23 11/07/23 haloperidol 5 mg tablet 5 mg PO BID 09/19/23 11/07/23 ibuprofen 600 mg tablet 600 mg PO Q8H PRN dental pain 09/19/23 09/19/23 lactulose 10 gram/15 mL (15 mL) 20 g PO BID 09/19/23 11/07/23 oral solution levothyroxine 25 mcg tablet 25 mcg PO DAILY 09/19/23 11/07/23 lorazepam 2 mg/mL injection 1 mg IM Q5M PRN SEIZURES LASTING 09/19/23 09/19/23 solution LONGER THAN 5 MINUTES mineral oil-isopropyl myristat 1 appl topical BEDTIME 09/19/23 09/19/23 lotion (Minerin lotion) multivitamin 1 tab PO DAILY 09/19/23 11/07/23 nicotine 7 mg/24 hr daily 1 patch transdermal Q24H 09/19/23 09/19/23 transdermal patch oxcarbazepine 300 mg tablet 300 mg PO BID 09/19/23 11/07/23 propranolol 10 mg tablet 15 mg PO BID 09/19/23 11/07/23 rosuvastatin 40 mg tablet 40 mg PO DAILY 09/19/23 09/19/23 sennosides 8.6 mg tablet (senna) 8.6 mg PO BEDTIME PRN Constipation 09/19/23 09/19/23 simethicone 80 mg chewable tablet 80 mg PO BID 09/19/23 11/07/23 sodium chloride 0.65 % nasal spray 2 spray intranasal Q2H PRN Nasal 09/19/23 09/19/23 aerosol (Deep Sea Nasal) Congestion thiamine HCl (vitamin B1) 100 mg 100 mg PO DAILY 09/19/23 09/19/23 tablet (Vitamin B-1) oxcarbazepine 300 mg/5 mL (60 300 mg PO BID 04/29/24 mg/mL) oral suspension (Trileptal) Previous Rx's ?Medication ?Instructions ?Recorded apixaban 5 mg (74 tabs) tablets in 5 mg PO BID #74 ea 05/14/24 a dose pack (Eliquis DVT-PE Treat 30D Start) apixaban 5 mg (74 tabs) tablets in 5 mg PO BID #74 ea 05/14/24 a dose pack (Eliquis DVT-PE Treat 30D Start) Allergies Allergy/AdvReac Type Severity Reaction Status Date / Time No Known Allergies Allergy Verified 05/14/24 15:24 [No Known Allergies*] Review of Systems 2 Review of Systems: Yes all other systems are reviewed and are negative FOR[facility]LY [facility] Past Medical History Attestation statement: The following information was validated with the patient. Source: old records reviewed and nursing notes reviewed Medical History Alcoholic dementia Social History Social History Alcohol intake: former Advance Directives: No Advance Directives Information Provided: No Advance Directives Date on File: 05/26/22 Do you have a plan to hurt others: No Plan Physical Exam 2 Vital Signs: Vital Signs: Last Vital Signs Temp 99.1 F 05/14/24 15:20 Pulse 69 05/14/24 15:20 Resp 18 05/14/24 15:20 BP 96/61 05/14/24 15:20 Pulse Ox 99 05/14/24 15:20 O2 Del Method Room Air 05/14/24 15:20 BMI result Body Mass Index 30.9 vss Appearance: Alert.? Oriented X3.? No acute distress.? Head: Normocephalic, atraumatic, no step-offs or deformities Eyes: Pupils equal, round and reactive to light.? Neck: Normal inspection.? Neck supple.? CVS: Normal heart rate and rhythm.? Pulses normal.? Respiratory: No respiratory distress.? Breath sounds normal.? Abdomen: Soft and nontender.? Skin: Skin warm and dry.? Normal skin color.? Normal skin turgor.? Extremities: No lower extremity edema.? No calf ttp. 5/5 strength to bilateral upper and lower extremities Neuro: Oriented X 3.? No motor deficit.? No sensory deficit. CN 2-12 intact Course Course Course Narrative: This is a Rapid Medical Exam performed in triage by Mena Caballero PA-C. Full HPI, ROS and PE to be performed by primary ED provider. 58-year-old male with a past medical history of alcoholic dementia, resides at [facility] presenting to the ED c/o sent down from Ultrasound after positive finding seen on outpatient steady PE: No appreciable pedal edema. distal pulses faintly palpable Plan: Labs Medical Decision Making Medical Decision Making [facility] Narrative: 1829 58 year old male present with pain behind the left knee and positive outpatient DVT study. PE benign History and physical exam concerning for DVT. Unlikely arterial occlusion. No signs of neurovascular compromise. No signs of trauma. No signs of fracture dislocation. Will rule out metabolic derangements. Plan basic labs, will review imaging done earlier today. Differential Diagnosis Differential Diagnoses: The differential diagnosis associated with the presentation includes (History and physical exam concerning for DVT. Unlikely arterial occlusion. No signs of neurovascular compromise. No signs of trauma. No signs of fracture dislocation. Will rule out metabolic derangements.) Admission/Observation Consideration of admission/observation: Escalation of care including admission/observation considered Lab Data MDM Lab Attestation statement: I reviewed the patient's lab results. 05/14/24 16:56 05/14/24 16:56 Labs: Lab Results 05/14/24 Range/Units 16:56 WBC 7.5 (4.8-10.8) X10*3/uL RBC 4.46 L (4.60-5.80) X10*6/uL Hgb 13.7 L (14.0-18.0) g/dl Hct 38.2 L (42.0-52.0) % MCV 85.7 (80.0-98.0) fL MCH 30.7 (27.0-33.0) pg MCHC 35.9 (31.0-36.0) g/dl RDW 13.5 (11.0-16.0) % Plt Count 147 L (160-400) X10*3/uL MPV 8.1 L (9.4-12.4) fL Immature Gran % (Auto) 0.4 (0.0-0.4) % Neut % (Auto) 48.1 (45-73) % Lymph % (Auto) 36.9 (20-40) % [place] % (Auto) 8.0 (2-11) % Eos % (Auto) 5.8 H (0-4) % Baso % (Auto) 0.8 (0-2) % Lymph # (Auto) 2.8 (1.2-4.9) X10*3/uL [place] # (Auto) 0.6 (0.1-1.2) X10*3/uL Eos # (Auto) 0.4 (0.0-0.4) X10*3/uL Baso # (Auto) 0.1 (0.0-0.2) X10*3/uL Abs Immat Gran (auto) 0.03 (0.00-0.03) X10*3/uL Absolute Neuts (auto) 3.6 (2.0-8.3) x10*3/uL Absolute Nucleated RBC 0.000 (0.0-0.012) X10*3/uL Nucleated RBC % (auto) 0.0 (0.0-0.2) /100WBC PT 12.3 (10.9-12.4) SEC INR 1.1 (0.9-1.1) Sodium 138 (135-145) mmol/L Potassium 4.3 (3.3-5.1) mmol/L Chloride 106 (96-108) mmol/L Carbon Dioxide 25 (22-29) mmol/L Anion Gap 11 L (12-20) BUN 8 L (9-16) mg/dL Creatinine 0.85 (0.5-1.4) mg/dL Estim Creat Clear Calc 92.4 Estimated GFR > 60 Random Glucose 93 (60-115) mg/dL Calcium 9.6 (8.4-10.2) mg/dL Total Bilirubin 0.3 (0.0-1.0) mg/dL Direct Bilirubin 0.1 (0.0-0.5) mg/dL AST 22 (5-37) U/L ALT 11 (0-40) U/L Alkaline Phosphatase 82 (39-117) U/L Total Protein 7.0 (6.5-8.0) g/dL Albumin 4.0 (3.5-5.0) g/dL Independent Interpretation I performed an independent interpretation of an: Ultrasound (politeal v DVT ) Radiology Impression Discussion of test interpretation with radiology: I have reviewed the radiologist's reading. Independent Historian Clinical information obtained from an independent historian. History obtained from or confirmed by: Other ([facility] Worker ) External Record Review External record reviewed: Office record, Outpatient record, Prior outpatient labs, Prior outpatient radiology and Primary care record Chronic Conditions Patient?s care impacted by: Other (see HPI ) Critical Care Time Critical Care Time Critical Care Time: No Discharge Plan Discharge Clinical Impression: DVT (deep venous thrombosis) Patient Disposition: Home, Self-Care Instructions: Deep Vein Thrombosis (ED), Deep Vein Thrombosis Prevention (ED) Additional Instructions: Take your medications as prescribed. If you were prescribed antibiotics today, it is important that you take your medication to their entirety, do not skip any doses, do not finish them early. Follow-up with your primary care provider this week. Return to the emergency department with new or worsening symptoms. Such as fevers, chills, chest pain, shortness of breath, nausea, vomiting, dizziness, headache, vision changes, lethargy In case of emergency call 911 You are being discharged home with a blood thinner, this thinned your blood, if you fall or sustain any trauma as you should come to the emergency department immediately for evaluation. If you notice blood in stool, vomit or excessive bleeding from anywhere please come to the emergency department. Prescriptions: New Eliquis DVT-PE Treat 30D Start 5 mg (74 tabs) tablets,dose pack 5 mg PO BID Qty: 74 0RF Eliquis DVT-PE Treat 30D Start 5 mg (74 tabs) tablets,dose pack 5 mg PO BID Qty: 74 0RF No Action multivitamin Tablet 1 tab PO DAILY acetaminophen 325 mg Tablet 650 mg PO Q4H PRN (Reason: Mild Pain (Scale Score 1-4)) gabapentin 600 mg Tablet 600 mg PO TID haloperidol 5 mg Tablet 5 mg PO BID aspirin 81 mg Tablet,Delayed Release (Dr/Ec) 81 mg PO DAILY levothyroxine 25 mcg Tablet 25 mcg PO DAILY propranolol 10 mg Tablet 15 mg PO BID docusate sodium [Colace] 100 mg Capsule 100 mg PO DAILY ibuprofen 600 mg Tablet 600 mg PO Q8H PRN (Reason: dental pain) haloperidol 2 mg Tablet 4 mg PO BID Rx Instructions: 9 mg daily in total fluticasone propionate 50 mcg/actuation [place],Suspension 1 spray INTRANASAL BID Rx Instructions: administer into each nostril nicotine 7 mg/24 hr Patch 24 Hour 1 patch TRANSDERMAL Q24H Minerin Lotion 1 appl TOPICAL BEDTIME Artificial Tears (PF) Dropperette 2 drp ophthalmic (eye) Q6H PRN (Reason: Dry Eye(S)) Deep Sea Nasal 0.65 % Aerosol,[place] 2 spray INTRANASAL Q2H PRN (Reason: Nasal Congestion) rosuvastatin 40 mg Tablet 40 mg PO DAILY lactulose 10 gram/15 mL (15 mL) Solution 20 g PO BID lorazepam 2 mg/mL Solution 1 mg IM Q5M PRN (Reason: SEIZURES LASTING LONGER THAN 5 MINUTES) Rx Instructions: until symptoms controlled benzocaine 10 % Gel 1 appl MUCOUS MEMBRANE QID PRN (Reason: DENTAL PAIN) sennosides [senna] 8.6 mg Tablet 8.6 mg PO BEDTIME PRN (Reason: Constipation) thiamine HCl (vitamin B1) [Vitamin B-1] 100 mg Tablet 100 mg PO DAILY oxcarbazepine 300 mg Tablet 300 mg PO BID diazepam 2 mg Tablet 1 mg PO BID alum-mag hydroxide-simeth 200-200-20 mg/5 mL Suspension 30 ml PO QID PRN (Reason: STOMACH DISCOMFORT) Rx Instructions: administer between meals and at bedtime simethicone 80 mg Tablet,Chewable 80 mg PO BID oxcarbazepine [Trileptal] 300 mg/5 mL (60 mg/mL) suspension 300 mg PO BID Referrals: Konrad Fajardo DO [Primary Care Provider] - 2 days Print Language: Lithuanian
[2024-05-14 17:00] LABS: MANUAL DIFF FLAG NO
[2024-05-14 17:02] LABS: Basophils Absolute Auto 0.1 X10*3/uL (0.0-0.2); Basophils Percent Auto 0.8 % (0-2); Eosinophils Absolute Auto 0.4 X10*3/uL (0.0-0.4); Eosinophils Percent Auto 5.8 % (0-4); Hematocrit 38.2 % (42.0-52.0); Hemoglobin 13.7 g/dl (14.0-18.0); Imm Gran Abs Auto 0.03 X10*3/uL (0.00-0.03); Imm Gran Pct Auto 0.4 % (0.0-0.4); Lymphocytes Absolute Auto 2.8 X10*3/uL (1.2-4.9); Lymphocytes Percent Auto 36.9 % (20-40); Mean Corpuscular HGB Conc 35.9 g/dl (31.0-36.0); Mean Corpuscular Hemoglobin 30.7 pg (27.0-33.0); Mean Corpuscular Volume 85.7 fL (80.0-98.0); Mean Platelet Volume 8.1 fL (9.4-12.4); Monocytes Absolute Auto 0.6 X10*3/uL (0.1-1.2); Neutrophils Absolute Auto 3.6 x10*3/uL (2.0-8.3); Neutrophils Percent Auto 48.1 % (45-73); Platelet Count 147 X10*3/uL (160-400); Red Blood Count 4.46 X10*6/uL (4.60-5.80); Red Cell Distribution Width 13.5 % (11.0-16.0); White Blood Count 7.5 X10*3/uL (4.8-10.8)
[2024-05-14 17:08] LABS: INTERNATIONAL NORM RATIO 1.1 (0.9-1.1); Prothrombin Time 12.3 SEC (10.9-12.4)
[2024-05-14 17:20] LABS: Alanine Aminotransferase 11 U/L (0-40); Anion Gap 11 (12-20); Aspartate Amino Transferase 22 U/L (5-37); Bilirubin Direct 0.1 mg/dL (0.0-0.5); Bilirubin Total 0.3 mg/dL (0.0-1.0); Blood Urea Nitrogen 8 mg/dL (9-16); Calcium 9.6 mg/dL (8.4-10.2); Carbon Dioxide 25 mmol/L (22-29); Chloride 106 mmol/L (96-108); Creatinine Clr Calc Pharmacy 92.4; Estimated Glomerular Filt Rate > 60; Glucose Random 93 mg/dL (60-115); Potassium 4.3 mmol/L (3.3-5.1); Sodium 138 mmol/L (135-145)
[2024-05-14 17:30] LABS: Alkaline Phosphatase 82 U/L (39-117)
[2024-05-14 18:26] VITALS: BP 96/63; PULSE 70; RESP 18; TEMP 37.4; O2SAT 99
[2024-05-14 18:37] VITALS: BP 96/63; PULSE 70; RESP 18; TEMP 37.4; O2SAT 99
== END 2024-05-14 18:38 | disposition home or self-care (01) ==
PROVIDERS: Physician Assistant; Emergency Provider Emergency Medicine Emergency Medical Services; PCP Hospitalist
DX: I82.402 Acute embolism and thrombosis of unspecified deep veins of left lower extremity (principal); M79.662 Pain in left lower leg
CPT/HCPCS: 36415; 80048; 80076; 85025; 85610; 99282; 99283

== ENCOUNTER 2024-05-27 13:54 | Outpatient (AMB) | payer MEDICAID, SELFPAY ==
[2024-05-27 14:04] VITALS: BMI 30.9
--- NOTE | 2024-05-27 14:04 | A.OFFVIS_ITS ---
Vital Signs 05/27/24 14:04 Height 5 ft 4 in Weight 180 lb BMI 30.9 Intake Visit Reasons: Follow Up arterial US 05/14/24 Intake Note: follow up Arterial US 05/14/24, pt states he does get LE cramping in both legs but no pain or weakness. Pt is in a wheelchair. No ulcers.Pt is at [employer] Accompanied by: [facility] [employer] employee Allergies No Known Allergies [No Known Allergies*] Allergy (Verified 05/27/24 14:07) HPI HPI Follow Up arterial US 05/14/24: Details: Very pleasant 58-year-old gentleman presents for routine arterial surveillance. He had originally seen us for endovascular intervention regarding a nonhealing ulcer on the left 2nd toe. It has gone on to heal. Now presents for routine arterial surveillance follow-up. [facility] Medical History Alcoholic dementia Social History Alcohol intake: former Advance Directives Date on File: 05/26/22 Review of Systems Const All systems reviewed & are unremarkable except as noted in HPI and below Reports no additional complaints ENT Reports Normal hearing present Card Denies chest pain, Denies chest pain at rest, Denies chest pain with activity and Denies pedal edema Resp Denies cough GI Denies abdominal pain Musc Denies abnormal gait, Denies muscle cramps and Denies radiating pain into limb Skin/Breast Denies skin ulcer and Denies wounds Neuro Reports Normal hearing present and Denies abnormal gait Psych Reports no additional complaints Physical Exam Vital Signs: BMI result Body Mass Index 30.9 Const General: cooperative, healthy appearing and comfortable Orientation/consciousness: oriented to person, oriented to place and oriented to time HEENT Head: Yes normal to inspection Neck Neck: Yes normal visual inspection Carotids: no bruits Chest Chest palpation & inspection: normal inspection of the chest Resp Effort & Inspection: normal respiratory effort and able to speak in complete sentences Auscultation: clear to auscultation bilaterally, no crackles, no rales, no rhonchi and no wheezes Cardio Rate: regular rate Rhythm: regular rhythm Heart sounds: S1 normal heart sound present and S2 normal heart sound present Bruits: no carotid bruits Peripheral pulses: Peripheral pulses 2+ throughout GI Inspection: Yes normal to inspection Skin Wounds: no wounds Hair: normal Neuro General: oriented to person, oriented to place and oriented to time Cranial nerves: Yes CN's II-XII intact bilaterally and Yes Normal hearing present Cognition (Neuro): normal cognition Motor exam (neuro): 5/5 motor strength present throughout Extrem Other: venous exam: No significant superficial varicosities or spider telangiectasias, minimal edema General: No clubbing, No cyanosis and No edema Psych Appearance: grossly normal Mental Status: mental status grossly normal Speech and movement: Normal speech and movement present Results Reviewed Results Reviewed: Noninvasive arterial testing dated 05/14/2024 demonstrates NATO on the right of 0.8 and on the left of 0.9. Written report and images were reviewed. Assessment & Plan Assessment & Plan (1) PAD (peripheral artery disease): Comment: 11/07/2023 - left popliteal plasty Code(s): I73.9 - Peripheral vascular disease, unspecified Category: Medical Plan: In short patient has stable claudication. I did review the pathophysiology of peripheral vascular disease with the patient. In addition we did discuss routine conservative measures including a healthy diet and the importance of exercise and ambulation. We did discuss risk factor modification. The patient will continue to to follow-up with surveillance follow-up in approximately 1 year. Thank you for allowing us to participate in this patient's care. If there are any questions or concerns please do not hesitate to contact us. Orders: Orders US arterial duplex LE BI 1 Year I73.9 - Peripheral vascular disease, unspecified Coding Level of Care Code Est Pt Level 4 (66654) Complex EM visit Add On G2211 Diagnoses PAD (peripheral artery disease) I73.9
== END 2024-05-27 14:19 | disposition home or self-care (01) ==
PROVIDERS: Visit Provider Surgery Vascular Surgery
DX: I73.9 Peripheral vascular disease, unspecified (principal)
CPT/HCPCS: 99214; G2211

== ENCOUNTER → 2024-05-27 13:54 | Outpatient (BNVA) | payer MEDICAID, SELFPAY | PROVIDERS: Visit Provider Surgery Vascular Surgery | DX: I73.9 Peripheral vascular disease, unspecified (principal) | CPT/HCPCS: 99212 ==

== ENCOUNTER 2024-09-30 14:38 | Outpatient (REF) | payer MEDICAID, SELFPAY ==
--- NOTE | ~2024-09-30 | US_ITS ---
EXAMINATION: US TRIPLEX LOWER EXTREMITY, LEFT CLINICAL INFORMATION: Follow-up DVT after treatment. COMPARISON: 05/14/2024 US arterial duplex. (Demonstrating left popliteal DVT) TECHNIQUE: Color-flow triplex imaging with spectral analysis and compression Doppler were performed on the left lower extremity. FINDINGS: Respiratory variation, normal compression and augmented flow are noted throughout the left lower extremity. The visualized common femoral vein, superficial femoral vein, profunda femoral vein, popliteal vein and midcalf peroneal and posterior tibial venous segments show no evidence of deep venous thrombosis. There is no Rojas's cyst. US/US venous duplex LE LT IMPRESSION: No evidence of persistent deep venous thrombosis involving the left lower extremity. Electronically signed by: Erasto Salas MD 10/01/2024 02:02 PM EDT
--- OUTSIDE RECORDS SUMMARY | 2024-09-30 17:29 | XMS_ITS | Clinical Summary ---
Author Organization [facility] Address [address] [place] [address] Phone Care Team Providers Care Staging Technician Name Role Phone Konrad Fajardo MD Primary Care Provider [phone] Encounters Date Type Department Care Team Description 08/25/2024 Lab Requisition [facility] [address] [place] [address] Konrad Fajardo MD Alcohol dependence with alcohol-induced persisting dementia (CMS/HCC V24, CMS/HCC V28) 08/01/2024 Lab Requisition [facility] Lab [address] [place] [address] Konrad Fajardo MD Alcohol dependence with alcohol-induced persisting dementia (CMS/HCC V24, CMS/HCC V28) from Last 3 Months Social History Tobacco Use Types Packs/Day Years Used Date Smoking Tobacco: Never Assessed Sex and Gender Information Value Date Recorded Sex Assigned at Not on file Legal Sex Male 12:33 PM EST Gender Identity Not on file Sexual Orientation Not on file Plan of Treatment Health Maintenance Due Date Last Done Comments DTaP,Tdap,and Td Vaccines (1 - Tdap) 1985 Hepatitis B Vaccines (1 of 3 - 19+ 3-dose series) 1985 Pneumococcal Vaccine: 50+ Years (1 of 1 - PCV) 2016 Zoster Vaccines (1 of 2) 2016 Colorectal Cancer Screening: Colonoscopy 05/09/2022 Depression Screening 05/09/2022 HIV Screening 05/09/2022 Hepatitis C Screening 05/09/2022 Social Influencers of Health Screening 05/09/2022 COVID-19 Vaccine (1 - 2023-2 5 season) 2024 Influenza Vaccine (Season Ended) 2025 Cholesterol Screening (Lipid Panel) 08/25/2029 08/25/2024, 06/13/2024 HIB Vaccines Aged Out No longer eligi ble based on patient's age to complete this topic HPV Vaccines Aged Out No longer eligi ble based on patient's age to complete this topic Hepatitis A Vaccines Aged Out No long er eligible based on patient's age to complete this topic IPV Vaccines Aged Out No longer eligi ble based on patient's age to complete this topic MMR Vaccines Aged Out No longer eligi ble based on patient's age to complete this topic Meningococcal ACWY Vaccine Aged Out N o longer eligible based on patient's age to complete this topic Meningococcal B Vaccine Aged Out No l onger eligible based on patient's age to complete this topic Pneumococcal Vaccine: Pediatrics (0 to 5 Years) and At-Risk Patients (6 to 64 Years) Aged Out No longer eligible b ased on patient's age to complete this topic RSV Immunization Patients Under 20 months Aged Out No longer eligible b ased on patient's age to complete this topic Varicella Vaccines Aged Out No longer eligible based on patient's age to complete this topic Procedures Procedure Name Priority Date/Time Associated Diagnosis Comments CBC WITH AUTO DIFFERENTIAL Routine 08/25/2024 7:12 AM EDT Alcohol dependence with alcohol-induced persisting dementia (CMS/HCC) PROSTATE SPECIFIC ANTIGEN SCREEN Routine 08/25/2024 7:12 AM EDT Alcohol dependence with alcohol-induced persisting dementia (CMS/HCC) AMMONIA Routine 08/25/2024 7:12 AM EDT Alcohol dependence with alcohol-induced persisting dementia (CMS/HCC) LIPID PANEL WITH REFLEX TO DIRECT LDL Routine 08/25/2024 7:12 AM EDT Alcohol dependence with alcohol-induced persisting dementia (CMS/HCC) CBC AND DIFFERENTIAL Routine 08/25/2024 7:12 AM EDT Alcohol dependence with alcohol-induced persisting dementia (CMS/HCC) CBC WITH AUTO DIFFERENTIAL Routine 08/01/2024 6:43 AM EST Alcohol dependence with alcohol-induced persisting dementia (CMS/HCC) CBC AND DIFFERENTIAL Routine 08/01/2024 6:43 AM EST Alcohol dependence with alcohol-induced persisting dementia (CMS/HCC) from Last 3 Months Results * Prostate specific antigen screen (08/25/2024 7:12 AM EDT) Pathologist [facility] PSA 0.85 0.00 - 4.00 ng/mL LAB CHEMISTRY METHOD 08/25/2024 11:42 AM EDT [facility] Blood Venous blood specimen / Unknown 08/25/2024 7:12 AM EDT 08/25/2024 7:47 AM EDT Narrative [facility] - 08/25/2024 11:42 AM EDT The Siemens Advia Soevolvedaur Chemiluminescent Immunoassay is used. Results obtained with different assay methods or kits cannot be used interchangeably. Results cannot be interpreted as absolute evidence of the presence or absence of malignant disease. us Konrad Fajardo MD LAB BLOOD ORDERABLES Final Resul t [facility] [address] [place] [address], [place] [phone] * Lipid panel with reflex to direct LDL (08/25/2024 7:12 AM EDT) Pathologist [facility] Cholesterol 125 0 - 200 mg/dL LAB CHEMISTRY METHOD 08/25/2024 8:17 AM EDT [facility] Triglycerides 75 0 - 150 mg/dL LAB CHEMISTRY METHOD 08/25/2024 8:17 AM EDT [facility] HDL 54 >=40 mg/dL LAB CHEMISTRY METHOD 08/25/2024 8:17 AM EDT [facility] LDL Calculated 56 0 - 100 mg/dL LAB CHEMISTRY METHOD 08/25/2024 8:17 AM EDT [facility] VLDL Cholesterol Kahlil 15 mg/dL LAB CHEMISTRY METHOD 08/25/2024 8:17 AM EDT [facility] Non HDL Chol. (LDL+VLDL) 71 <145 mg/dL LAB CHEMISTRY METHOD 08/25/2024 8:17 AM EDT [facility] Chol/HDL Ratio 2.3 0.0 - 4.4 LAB CHEMISTRY METHOD 08/25/2024 8:17 AM EDT [facility] Blood Venous blood specimen / Unknown 08/25/2024 7:12 AM EDT 08/25/2024 7:47 AM EDT us Konrad Fajardo MD LAB BLOOD ORDERABLES Final Resul t [facility] [address] [place] [address], [place] [phone] * (ABNORMAL) CBC auto differential (08/25/2024 7:12 AM EDT) Only the most recent of2 resultswithin the time period is included. WBC 7.7 4.8 - 10.8 K/mcL LAB HEMETOLOGY [facility] RBC 4.40(L) 4.50 - 5.50 M/mcL LAB HEMETOLOGY METHOD 08/25/2024 7:57 AM [facility] Hemoglobin 13.3(L) 13.5 - 17.5 g/dL LAB HEMETOLOGY METHOD 08/25/2024 7:57 AM [facility] Hematocrit 38.0(L) 42.0 - 54.0 % LAB HEMETOLOGY METHOD 08/25/2024 7[facility] MCV 86.6 79.0 - 98.0 FL LAB HEMETOLOGY METHOD 08/25/2024 7:57 AM [facility] MCH 30.3 27.0 - 32.0 pcg LAB HEMETOLOGY METHOD 08/25/2024 7:57 AM [facility] MCHC 35.0 32.0 - 37.0 g/dL LAB HEMETOLOGY METHOD 08/25/2024 7:57 AM T [facility] RDW 13.4 11.0 - 15.0 % LAB HEMETOLOGY METHOD 08/25/2024 7:57 AM [facility] Platelets 171 130 - 400 K/mcL LAB HEMETOLOGY METHOD 08/25/2024 7:57 AM [facility] MPV 8.5 7.0 - 11.0 FL LAB HEMETOLOGY METHOD 08/25/2024 [facility] NRBC 0.0 <1.0 % LAB HEMETOLOGY METHOD 08/25/2024 7:57 AM [facility] NRBC Absolute 0.00 <0.10 K/mcL LAB HEMETOLOGY METHOD 08/25/2024 7:57 AM [facility] Neutrophils Relative 50.7 % LAB HEMETOLOGY METHOD 08/25/2024 7:57 AM [facility] Lymphocytes Relative 31.9 % LAB HEMETOLOGY METHOD 08/25/2024 7:57 AM [facility] Monocytes Relative 10.3 % LAB HEMETOLOGY METHOD 08/25/2024 7:57 AM [facility] Eosinophils Relative 6.0 % LAB HEMETOLOGY METHOD 08/25/2024 7:57 AM [facility] Basophils Relative 0.8 % LAB HEMETOLOGY METHOD 08/25/2024 7:57 AM [facility] Immature Granulocytes Relative 0.3 % LAB HEMETOLOGY METHOD 08/25/2024 7:57 AM [facility] Neutrophils Absolute 3.88 1.50 - 7.00 K/mcL LAB HEMETOLOGY METHOD 08/25/2024 7:57 AM [facility] Lymphocytes Absolute 2.44 1.00 - 5.00 K/mcL LAB HEMETOLOGY METHOD 08/25/2024 7:57 AM EDT [facility] Monocytes Absolute 0.79 0.20 - 1.00 K/mcL LAB HEMETOLOGY METHOD 08/25/2024 7:57 AM EDT [facility] Eosinophils Absolute 0.46 0.00 - 0.50 K/[facility] LAB HEMETOLOGY METHOD 08/25/2024 7:57 AM EDT [facility] Basophils Absolute 0.06 0.00 - 0.20 K/[facility] LAB HEMETOLOGY METHOD 08/25/2024 7:57 AM EDT [facility] Immature Granulocytes Absolute 0.02 0.00 - 0.03 K/[facility] LAB HEMETOLOGY METHOD 08/25/2024 7:57 AM EDT [facility] Blood Venous blood specimen / Unknown 08/25/2024 7:12 AM EDT 08/25/2024 7:47 AM EDT us Konrad Fajardo MD LAB BLOOD ORDERABLES Final Resul t Performing Organization Address City/[facility]/ZIP Co de Phone Number [facility] [address] [place] [address], [place] [phone] * (ABNORMAL) Ammonia (08/25/2024 7:12 AM EDT) Ammonia 38(H) 11 - 35 mcmol/L LAB CHEMISTRY METHOD 08/25/2024 8:10 AM EDT [facility] Blood Venous blood specimen / Unknown 08/25/2024 7:12 AM EDT 08/25/2024 7:47 AM EDT us Konrad Fajardo MD LAB BLOOD ORDERABLES Final Resul t [facility] [address] [place] [address], [place] [phone] from Last 3 Months Care Teams Staging Technician Relationship Specialty Start Date End Date Konrad Fajardo MD [address] [place] [address] [address] ALEX Lopez PCP - General Internal Medicine 07/08/24
--- OUTSIDE RECORDS SUMMARY | 2024-09-30 17:29 | XMS_ITS | Encounter Summary ---
Author Organization [email or web address] Address [address] [place] [address] Care Team Providers Care Entry Level Management Name Role Phone Konrad Fajardo MD Primary Care Provider [phone] Encounter Details Date Type Department Care Team (Late st Contact Info) Description 08/01/2024 Lab Requisition [facility] - Main Lab [address] [place] [address] Konrad Fajardo MD [address] [place] [address] [address] [place], [place] Alcohol dependence with alcohol-induced persisting dementia (CMS/HCC V24, CMS/HCC V28) Social History Tobacco Use Types Packs/Day Years Used Date Smoking Tobacco: Never Assessed Sex and Gender Information Value Date Recorded Sex Assigned at Not on file Legal Sex Male 12:33 PM EST Gender Identity Not on file Sexual Orientation Not on file documented as of this encounter Plan of Treatment Not on file documented as of this encounter Procedures Procedure Name Priority Date/Time Associated Diagnosis Comments CBC WITH AUTO DIFFERENTIAL Routine 08/01/2024 6:43 AM EST Alcohol dependence with alcohol-induced persisting dementia (CMS/HCC) CBC AND DIFFERENTIAL Routine 08/01/2024 6:43 AM EST Alcohol dependence with alcohol-induced persisting dementia (CMS/HCC) documented in this encounter Results * (ABNORMAL) CBC auto differential (08/01/2024 6:43 AM EST) WBC 10.0 4.8 - 10.8 K/[facility] LAB HEMETOLOGY METHOD 08/01/2024 8:08 AM [facility] RBC 4.30(L) 4.50 - 5.50 M/[facility] LAB HEMETOLOGY METHOD 08/01/2024 8:08 AM [facility] Hemoglobin 13.1(L) 13.5 - 17.5 g/dL LAB HEMETOLOGY METHOD 08/01/2024 8:08 AM [facility] Hematocrit 38.0(L) 42.0 - 54.0 % LAB HEMETOLOGY METHOD 08/01/2024 8:08 AM [facility] MCV 88.6 79.0 - 98.0 FL LAB HEMETOLOGY METHOD 08/01/2024 8:08 AM [facility] MCH 30.5 27.0 - 32.0 pcg LAB HEMETOLOGY METHOD 08/01/2024 8:08 AM [facility] MCHC 34.5 32.0 - 37.0 g/dL LAB HEMETOLOGY METHOD 08/01/2024 8:08 AM [facility] RDW 13.3 11.0 - 15.0 % LAB HEMETOLOGY METHOD 08/01/2024 8:08 AM [facility] Platelets 174 130 - 400 K/mcL LAB HEMETOLOGY METHOD 08/01/2024 8:08 AM [facility] MPV 9.2 7.0 - 11.0 FL LAB HEMETOLOGY METHOD 08/01/2024 8:08 AM [facility] NRBC 0.0 <1.0 % LAB HEMETOLOGY METHOD 08/01/2024 8:08 AM [facility] NRBC Absolute 0.00 <0.10 K/mcL LAB HEMETOLOGY METHOD 08/01/2024 8:08 AM [facility] Neutrophils Relative 56.0 % LAB HEMETOLOGY METHOD 08/01/2024 8:08 AM [facility] Lymphocytes Relative 29.3 % LAB HEMETOLOGY METHOD 08/01/2024 8:08 AM [facility] Monocytes Relative 10.0 % LAB HEMETOLOGY METHOD 08/01/2024 8:08 AM EST [facility] Eosinophils Relative 4.0 % LAB HEMETOLOGY METHOD 08/01/2024 8:08 AM [facility] Basophils Relative 0.5 % LAB HEMETOLOGY METHOD 08/01/2024 8:08 AM [facility] Immature Granulocytes Relative 0.2 % LAB HEMETOLOGY METHOD 08/01/2024 8:08 AM [facility] Neutrophils Absolute 5.59 1.50 - 7.00 K/mcL LAB HEMETOLOGY METHOD 08/01/2024 8:08 AM [facility] Lymphocytes Absolute 2.92 1.00 - 5.00 K/mcL LAB HEMETOLOGY METHOD 08/01/2024 8:08 AM [facility] Monocytes Absolute 1.00 0.20 - 1.00 K/mcL LAB HEMETOLOGY METHOD 08/01/2024 8:08 AM [facility] Eosinophils Absolute 0.40 0.00 - 0.50 K/mcL LAB HEMETOLOGY METHOD 08/01/2024 8:08 AM [facility] Basophils Absolute 0.05 0.00 - 0.20 K/mcL LAB HEMETOLOGY METHOD 08/01/2024 8:08 AM [facility] Immature Granulocytes Absolute 0.02 0.00 - 0.03 K/mcL LAB HEMETOLOGY METHOD 08/01/2024 8:08 AM [facility] Blood Venous blood specimen / Unknown 08/01/2024 6:43 AM EST 08/01/2024 7:47 AM EST us Konrad Fajardo MD LAB BLOOD ORDERABLES Final Resul t [facility] [address] [place] [address], documented in this encounter Visit Diagnoses Diagnosis Alcohol dependence with alcohol-induced persisting dementia (CMS/HCC V24, CMS/HCC V28) documented in this encounter Care Teams Entry Level Management Relationship Specialty Start Date End Date Konrad Fajardo MD [address] [place] [address] Dr [address] ALEX Lopez PCP - General Internal Medicine 07/08/24 documented as of this encounter
--- OUTSIDE RECORDS SUMMARY | 2024-09-30 17:30 | XMS_ITS | Encounter Summary ---
Author Organization [facility] [employer] Address [address] [place] [address] Care Team Providers Care Country Sales Manager Name Role Phone Unavailable Primary Care Provider Unavailabl e Encounter Details Date Type Department Care Team (Latest Contact Info) Description 07/25/2019 Abstract C CONVERSIONS Dental, Provider, DDS Social History Tobacco Use Types Packs/Day Years Used Date Smoking Tobacco: Never Assessed Sex and Gender Information Value Date Recorded Sex Assigned at Male 04/10/2022 10:34 AM EDT Legal Sex Male 10:34 AM EDT Gender Identity Male 04/10/2022 10:34 AM EDT Sexual Orientation Choose not to disclose 2021 10:34 AM EDT documented as of this encounter Plan of Treatment Not on file documented as of this encounter Visit Diagnoses Not on filedocumented in this encounter
--- OUTSIDE RECORDS SUMMARY | 2024-09-30 17:30 | XMS_ITS | Encounter Summary ---
Author Organization [employer] Address [address] [place] [address] Care Team Providers Care Window Shade Ring Sewer Name Role Phone Konrad Fajardo MD Primary Care Provider [phone] Encounter Details Date Type Department Care Team (Late st Contact Info) Description 04/30/[address] [facility] - Main Lab [address] [place] [id number] Konrad Fajardo MD [address] [place] [address] [address] [place], [place] Alcohol dependence with alcohol-induced persisting dementia [...] Procedure Name Priority Date/Time Associated Diagnosis Comments AMMONIA Routine 04/30/2024 7:25 AM EST Alcohol dependence with alcohol-induced persisting dementia (CMS/HCC) documented in this encounter Results * Ammonia (04/30/2024 7:25 AM EST) Ammonia 35 11 - 35 mcmol/L LAB CHEMISTRY METHOD 04/30/2024 8:50 AM EST [facility] Blood Venous blood specimen / Unknown 04/30/2024 7:25 AM EST 04/30/2024 8:29 AM EST us Konrad Fajardo MD LAB BLOOD ORDERABLES Final Resul t [facility] [address] [place], [place] [address] [phone] documented in this encounter Visit Diagnoses Diagnosis Alcohol dependence with alcohol-induced persisting dementia (CMS/[facility] V24, CMS/[facility] V28) documented in this encounter Care Teams Window Shade Ring Sewer Relationship Specialty Start Date End Date Konrad Fajardo MD [address] [place] [address] Dr [address] ALEX Lopez PCP - General Internal Medicine 07/08/24 documented as of this encounter
--- OUTSIDE RECORDS SUMMARY | 2024-09-30 17:30 | XMS_ITS | Encounter Summary ---
Author Organization [employer] Address [address] [place] [address] Care Team Providers Care Material Control Clerk Name Role Phone Konrad Fajardo MD Primary Care Provider [phone] Encounter Details Date Type Department Care Team (Late st Contact Info) Description 05/28/2024 Lab Requisition [facility] - Main Lab [address] [facility] [place] [address] Konrad Fajardo MD [address] [place] [address] [address] [place] Alcohol dependence with alcohol-induced persisting dementia (CMS/HCC [...] Procedure Name Priority Date/Time Associated Diagnosis Comments PROSTATE SPECIFIC ANTIGEN DIAGNOSTIC Routine 05/28/2024 7:05 AM EST Alcohol dependence with alcohol-induced persisting dementia (CMS/HCC) THYROID STIMULATING HORMONE Routine 05/28/2024 7:05 AM EST Alcohol dependence with alcohol-induced persisting dementia (CMS/HCC) THYROXINE FREE Routine 05/28/2024 7:05 AM EST Alcohol dependence with alcohol-induced persisting dementia (CMS/HCC) AMMONIA Routine 05/28/2024 7:05 AM EST Alcohol dependence with alcohol-induced persisting dementia (CMS/HCC) documented in this encounter Results * Thyroxine free (05/28/2024 7:05 AM EST) Free T4 0.94 0.70 - 1.80 ng/dL LAB CHEMISTRY METHOD 05/28/2024 8:50 AM EST [facility] Blood Venous blood specimen / Unknown 05/28/2024 7:05 AM EST 05/28/2024 7:36 AM EST us Konrad Fajardo MD LAB BLOOD ORDERABLES Final Resul t Performing Organization Address City/[facility]/ZIP Co de Phone Number [facility] [address] [place] [address], [place] [phone] * Prostate specific antigen diagnostic (05/28/2024 7:05 AM EST) PSA 0.68 0.00 - 4.00 ng/mL LAB CHEMISTRY METHOD 05/28/2024 8:50 AM EST [facility] Blood Venous blood specimen / Unknown 05/28/2024 7:05 AM EST 05/28/2024 7:36 AM EST Narrative [facility] - 05/28/2024 8:50 AM EST The Siemens Advia Centaur Chemiluminescent Immunoassay is used. Results obtained with different assay methods or kits cannot be used interchangeably. Results cannot be interpreted as absolute evidence of the presence or absence of malignant disease. us Konrad Fajardo MD LAB BLOOD ORDERABLES Final Resul t Performing Organization Address City/[facility]/ZIP Co de Phone Number [facility] [address] [place] [address], [place] [phone] * (ABNORMAL) Ammonia (05/28/2024 7:05 AM EST) Ammonia 36(H) 11 - 35 mcmol/L LAB CHEMISTRY METHOD 05/28/2024 8:10 AM EST [facility] Blood Venous blood specimen / Unknown 05/28/2024 7:05 AM EST 05/28/2024 7:36 AM EST us Konrad Fajardo MD LAB BLOOD ORDERABLES Final Resul t Performing Organization Address [facility] Co de Phone Number [facility] [address] [place] [address], [place] [phone] * Thyroid stimulating hormone (05/28/2024 7:05 AM EST) TSH 1.83 0.40 - 4.00 mcIU/mL LAB CHEMISTRY METHOD 05/28/2024 8:50 AM EST [facility] Blood Venous blood specimen / Unknown 05/28/2024 7:05 AM EST 05/28/2024 7:36 AM EST Konrad Fajardo MD LAB BLOOD ORDERABLES Final Resul t Performing Organization Address [facility] de Phone Number [facility] [address] [place] [address], [place] [phone] documented in this encounter Visit Diagnoses Diagnosis Alcohol dependence with alcohol-induced persisting dementia (CMS/HCC V24, CMS/HCC V28) documented in this encounter Care Teams Material Control Clerk Relationship Specialty Start Date End Date Konrad Fajardo MD [address] [place], [place] PCP - General Internal Medicine 07/08/24 documented as of this encounter
--- OUTSIDE RECORDS SUMMARY | 2024-09-30 17:30 | XMS_ITS | Encounter Summary ---
Author Organization [employer] Address [address] [place] [address] Care Team Providers Care Magazine Editor Name Role Phone Konrad Fajardo MD Primary Care Provider [phone] Encounter Details Date Type Department Care Team (Late st Contact Info) Description 08/25/2024 Lab Requisition [facility] - Main Lab [address] [facility] [employer] [place] [place] [address] Konrad Fajardo MD [address] [place] [address] [address] [place] Alcohol dependence with alcohol-induced persisting dementia (CMS/HCC [...] Date/Time Associated Diagnosis Comments PROSTATE SPECIFIC ANTIGEN SCREEN Routine 08/25/2024 7:12 AM EDT Alcohol dependence with alcohol-induced persisting dementia (CMS/HCC) LIPID PANEL WITH REFLEX TO DIRECT LDL Routine 08/25/2024 7:12 AM EDT Alcohol dependence with alcohol-induced persisting dementia (CMS/HCC) CBC WITH AUTO DIFFERENTIAL Routine 08/25/2024 7:12 AM EDT Alcohol dependence with alcohol-induced persisting dementia (CMS/HCC) CBC AND DIFFERENTIAL Routine 08/25/2024 7:12 AM EDT Alcohol dependence with alcohol-induced persisting dementia (CMS/HCC) AMMONIA Routine 08/25/2024 7:12 AM EDT Alcohol dependence with alcohol-induced persisting dementia (CMS/HCC) documented in this encounter Results * (ABNORMAL) CBC auto differential (08/25/2024 7:12 AM EDT) [facility] WBC 7.7 4.8 - 10.8 K/mcL LAB HEMETOLOGY METHOD [facility] RBC 4.40(L) 4.50 - 5.50 M/mcL LAB HEMETOLOGY METHOD 08/25/2024 7:57 AM EDT [facility] Hemoglobin 13.3(L) 13.5 - 17.5 g/dL LAB HEMETOLOGY METHOD 08/25/2024 7:[address] [facility] Hematocrit 38.0(L) 42.0 - 54.0 % LAB HEMETOLOGY METHOD 08/25/2024 7:[address] [facility] MCV 86.6 79.0 - 98.0 FL LAB HEMETOLOGY METHOD 08/25/2024 7:57 [facility] MCH 30.3 27.0 - 32.0 pcg LAB HEMETOLOGY METHOD 08/25/2024 7:[address] [facility] MCHC 35.0 32.0 - 37.0 g/dL LAB HEMETOLOGY METHOD 08/25/2024 7:[address] [facility] RDW 13.4 11.0 - 15.0 % LAB HEMETOLOGY METHOD 08/25/2024 7:57 [facility] Platelets 171 130 - 400 K/mcL LAB HEMETOLOGY METHOD 08/25/2024 7:57 AM EDT [facility] MPV 8.5 7.0 - 11.0 FL LAB HEMETOLOGY METHOD 08/25/2024 7:[address] [facility] NRBC 0.0 <1.0 % LAB HEMETOLOGY METHOD 08/25/2024 7:57 [facility] NRBC Absolute 0.00 <0.10 K/mcL LAB HEMETOLOGY METHOD 08/25/2024 7:57 AM EDT [facility] Neutrophils Relative 50.7 % LAB HEMETOLOGY METHOD 08/25/2024 7:[address] [facility] Lymphocytes Relative 31.9 % LAB HEMETOLOGY METHOD 08/25/2024 7:57 [facility] Monocytes Relative 10.3 % LAB HEMETOLOGY METHOD 08/25/2024 7:[address] [facility] Eosinophils Relative 6.0 % LAB HEMETOLOGY METHOD 08/25/2024 7:[address] [facility] Basophils Relative 0.8 % LAB HEMETOLOGY METHOD 08/25/2024 7:[address] [facility] Immature Granulocytes Relative 0.3 % LAB HEMETOLOGY METHOD 08/25/2024 7:[address] [facility] Neutrophils Absolute 3.88 1.50 - 7.00 K/mcL LAB HEMETOLOGY METHOD 08/25/2024 7:[address] [facility] Lymphocytes Absolute 2.44 1.00 - 5.00 K/mcL LAB HEMETOLOGY METHOD 08/25/2024 7:[address] [facility] Monocytes Absolute 0.79 0.20 - 1.00 K/mcL LAB HEMETOLOGY METHOD 08/25/2024 7:[address] [facility] Eosinophils Absolute 0.46 0.00 - 0.50 K/mcL LAB HEMETOLOGY METHOD 08/25/2024 7:[address] [facility] Basophils Absolute 0.06 0.00 - 0.20 K/mcL LAB HEMETOLOGY METHOD 08/25/2024 7:[address] [facility] Immature Granulocytes Absolute 0.02 0.00 - 0.03 K/mcL LAB HEMETOLOGY METHOD 08/25/2024 7:57 AM EDT [facility] Blood Venous blood specimen / Unknown 08/25/2024 7:12 AM EDT 08/25/2024 7:47 AM EDT us Konrad Fajardo MD LAB BLOOD ORDERABLES Final Resul t Performing Organization Address [facility] de Phone Number [facility] [address] [place] [address], [place] [phone] * Prostate specific antigen screen (08/25/2024 7:12 AM EDT) PSA 0.85 0.00 - 4.00 ng/mL LAB CHEMISTRY METHOD 08/25/2024 11:42 AM EDT [facility] Blood Venous blood specimen / Unknown 08/25/2024 7:12 AM EDT 08/25/2024 7:47 AM EDT Narrative [facility] - 08/25/2024 11:42 AM EDT The Siemens Advia Centaur Chemiluminescent Immunoassay is used. Results obtained with different assay methods or kits cannot be used interchangeably. Results cannot be interpreted as absolute evidence of the presence or absence of malignant disease. us Konrad Fajardo MD LAB BLOOD ORDERABLES Final Resul t Performing Organization Address [facility] Co de Phone Number [facility] [address] [place] [address], [place] [phone] * (ABNORMAL) Ammonia (08/25/2024 7:12 AM EDT) Ammonia 38(H) 11 - 35 mcmol/L LAB CHEMISTRY METHOD 08/25/2024 8:10 AM EDT [facility] Blood Venous blood specimen / Unknown 08/25/2024 7:12 AM EDT 08/25/2024 7:47 AM EDT us Konrad Fajardo MD LAB BLOOD ORDERABLES Final Resul t Performing Organization Address [facility]/ZIP Co de Phone Number [facility] [address] [place] [address], [place] [phone] * Lipid panel with reflex to direct LDL (08/25/2024 7:12 AM EDT) Cholesterol 125 0 - 200 mg/dL LAB CHEMISTRY METHOD 08/25/2024 8:17 AM EDT [facility] Triglycerides 75 0 - 150 mg/dL LAB CHEMISTRY METHOD 08/25/2024 8:17 AM EDT [facility] HDL 54 >=40 mg/dL LAB CHEMISTRY METHOD 08/25/2024 8:17 AM EDT [facility] LDL Calculated 56 0 - 100 mg/dL LAB CHEMISTRY METHOD 08/25/2024 8:17 AM EDT [facility] VLDL Cholesterol Kahlil 15 mg/dL LAB CHEMISTRY METHOD 08/25/2024 8:17 AM EDT [facility] Non HDL Chol. (LDL+VLDL) 71 <145 mg/dL LAB CHEMISTRY METHOD 08/25/2024 8:17 AM EDT [facility] Chol/HDL Ratio 2.3 0.0 - 4.4 LAB CHEMISTRY METHOD 08/25/2024 8:[address] [facility] Blood Venous blood specimen / Unknown 08/25/2024 7:12 AM EDT 08/25/2024 7:47 AM EDT Konrad Fajardo MD LAB BLOOD ORDERABLES Final Resul t Performing Organization Address [facility]/ZIP Co de Phone Number [facility] [address] [place] [address], [place] [phone] documented in this encounter Visit Diagnoses Diagnosis Alcohol dependence with alcohol-induced persisting dementia (CMS/HCC V24, CMS/HCC V28) documented in this encounter Care Teams Magazine Editor Relationship Specialty Start Date End Date Konrad Fajardo MD [address] [place] [address] [address] ALEX Lopez PCP - General Internal Medicine 07/08/24 documented as of this encounter
--- OUTSIDE RECORDS SUMMARY | 2024-09-30 17:30 | XMS_ITS | Clinical Summary ---
Author Organization [facility] [employer] Address [address] [facility] [address] [place] [address] Care Team Providers Care Checker Loader Name Role Phone Unavailable Primary Care Provider Unavailabl e Social History Tobacco Use Types Packs/Day Years Used Date Smoking Tobacco: Never Assessed Sex and Gender Information Value Date Recorded Sex Assigned at Male 04/10/2022 10:34 AM EDT Legal Sex Male 10:34 AM EDT Gender Identity Male 04/10/2022 10:34 AM EDT Sexual Orientation Choose not to disclose 2021 10:34 AM EDT Plan of Treatment Health Maintenance Due Date Last Done Comments CT Colonography 1966 Colonoscopy 1966 Colorectal Cancer Screening 1966 Depression Screening 1966 FIT DNA/Cologuard 1966 FIT 1966 FOBT 1966 Lipid Panel 1966 Sigmoidoscopy 1966 Alcohol/Substance Use Screening 1978 Tobacco Screening 1978 DTaP/Tdap/Td Vaccines (1 - Tdap) 1985 Hepatitis B Vaccines (1 of 3 - 19+ 3-dose series) 1985 Pneumococcal Vaccine: 50+ Ye ars (1 of 1 - PCV) 2016 Zoster Vaccines (1 of 2) 2016 COVID-19 Vaccine (2023-2 5 season) 2024 Influenza Vaccine (#1) 2024 RSV Patients and Pa tients Aged 60 years or older (1 - 1-dose 75+ series) 2041 HIB Vaccines Aged Out No longer eligi [...] patient's age to complete this topic Meningococcal Vaccine Aged Out No kay keith eligible based on patient's age to complete this topic Pneumococcal Vaccine: Pediat rics (0 to 5 Years) and At-Risk Patients (6 to 49) Years) Aged Out No longer eligible b ased on patient's age to complete this topic RSV under 20 months Aged Out No longe r eligible based on patient's age to complete this topic Rotavirus Vaccines Aged Out No longer eligible based on patient's age to complete this topic
--- OUTSIDE RECORDS SUMMARY | 2024-09-30 17:30 | XMS_ITS | Encounter Summary ---
Author Organization [employer] Address [address] [place] [address] Care Team Providers Care Assistant Store Manager Name Role Phone Konrad Fajardo MD Primary Care Provider [phone] Encounter Details Date Type Department Care Team (Late st Contact Info) Description 06/13/2024 Lab Requisition [facility] - Main Lab [address] [place] [address] Konrad Fajardo MD [address] [place] [address] [address] [place], [place] Alcohol dependence with alcohol-induced persisting dementia [...] Procedure Name Priority Date/Time Associated Diagnosis Comments LIPID PANEL WITH REFLEX TO DIRECT LDL Routine 06/13/2024 6:41 AM EST Alcohol dependence with alcohol-induced persisting dementia (CMS/HCC) AMMONIA Routine 06/13/2024 6:41 AM EST Alcohol dependence with alcohol-induced persisting dementia (CMS/HCC) documented in this encounter Results * (ABNORMAL) Ammonia (06/13/2024 6:41 AM EST) Ammonia 43(H) 11 - 35 mcmol/L LAB CHEMISTRY METHOD 06/13/2024 8:22 AM EST [facility] Blood Venous blood specimen / Unknown 06/13/2024 6:41 AM EST 06/13/2024 7:30 AM EST us Konrad Fajardo MD LAB BLOOD ORDERABLES Final Resul t Performing Organization Address [facility]/ZIP Co de Phone Number [facility] [address] [place] [address], [place] [phone] * Lipid panel with reflex to direct LDL (06/13/2024 6:41 AM EST) Cholesterol 121 0 - 200 mg/dL LAB CHEMISTRY METHOD 06/13/2024 8:22 AM EST [facility] Triglycerides 51 0 - 150 mg/dL LAB CHEMISTRY METHOD 06/13/2024 8:22 AM EST [facility] HDL 46 >=40 mg/dL LAB CHEMISTRY METHOD 06/13/2024 8:22 AM EST [facility] LDL Calculated 65 0 - 100 mg/dL LAB CHEMISTRY METHOD 06/13/2024 8:22 AM EST [facility] VLDL Cholesterol Kahlil 10.2 mg/dL LAB CHEMISTRY METHOD 06/13/2024 8:22 AM EST [facility] Non HDL Chol. (LDL+VLDL) 75 <145 mg/dL LAB CHEMISTRY METHOD 06/13/2024 8:22 AM EST [facility] Chol/HDL Ratio 2.6 0.0 - 4.4 LAB CHEMISTRY METHOD 06/13/2024 8:22 AM EST [facility] Blood Venous blood specimen / Unknown 06/13/2024 6:41 AM EST 06/13/2024 7:30 AM EST Konrad Fajardo MD LAB BLOOD ORDERABLES Final Resul t Performing Organization Address [facility]/ZIP Co de Phone Number [facility] [address] [place] [address], [place] [phone] documented in this encounter Visit Diagnoses Diagnosis Alcohol dependence with alcohol-induced persisting dementia (CMS/HCC V24, CMS/HCC V28) documented in this encounter Care Teams Assistant Store Manager Relationship Specialty Start Date End Date Konrad Fajardo MD [address] [place] [address] Dr Negrita Lopez [place] PCP - General Internal Medicine 07/08/24 documented as of this encounter
== END 2024-09-30 14:39 | disposition home or self-care (01) ==
LOC: HO.US 14:38
PROVIDERS: PCP Hospitalist; Visit Provider Hospitalist
DX: Z86.718 Personal history of other venous thrombosis and embolism (principal)
CPT/HCPCS: 93971

== ENCOUNTER → 2024-09-30 15:05 | Outpatient (BNV) | payer MEDICAID, SELFPAY | PROVIDERS: PCP Hospitalist; Visit Provider Radiology Diagnostic Radiology | DX: I82.432 Acute embolism and thrombosis of left popliteal vein (principal) | CPT/HCPCS: 93971 ==